=== PATIENT | male | born 1955 | race Caucasian/White ===

== ENCOUNTER 2016-07-20 13:40 | Outpatient (CLI) | payer MEDICARE, MEDICAID ==
[2016-07-20 14:17] LABS: HEMOGLOBIN A1C 0.76 g/dL
[2016-07-20 14:44] LABS: CALCIUM 9.6 mg/dL (8.5-10.3); CREATININE 0.6 mg/dL (0.6-1.2); POTASSIUM 4.1 mmol/L (3.5-5.0)
== END 2016-07-20 13:41 | disposition home or self-care (01) ==
LOC: LAB 13:40
PROVIDERS: ATTEND Internal Medicine
DX: E11.9 Type 2 diabetes mellitus without complications (principal); E29.1 Testicular hypofunction; Z79.899 Other long term (current) drug therapy
CPT/HCPCS: 36415; 80048; 83036; 84403

== ENCOUNTER 2017-01-07 14:03 | Emergency (ER) | payer MEDICARE, MEDICAID ==
--- NOTE | 2017-01-07 15:31 | ED Physician Documentation ---
History of Present Illness - Stated complaint Stated Complaint: MED REFILL - Chief complaint Chief Complaint: General - Additonal information Additional information: hx from pt he takes morphine ER 30 q 6h for chronic back pain his doctor Dr Michael is out of the office for the holidays and he did not get his refill only two pills left no other acute issue - no fever, CP AP numbness weakness injury etc Review of Systems Constitutional: denies: Fever Cardiac: denies: Chest pain / pressure GI: denies: Abdominal Pain : denies: Dysuria Musculoskeletal: reports: Back pain PD PAST MEDICAL HISTORY - Past Medical History Past Medical History: Yes Cardiovascular: None Respiratory: None Neuro: None Endocrine/Autoimmune: Type 2 diabetes GI: None : None HEENT: None Psych: Depression, Anxiety Musculoskeletal: Chronic back pain Derm: Other - Past Surgical History Past Surgical History: Yes - Present Medications Home Medications: Ambulatory Orders Medication Instructions Recorded Confirmed Gabapentin [Neurontin] 300 mg PO TID 04/17/13 01/07/17 Metformin HCl 1,000 mg PO BID 04/17/13 01/07/17 Morphine ER [Ms Contin] 30 mg PO Q6H 04/17/13 01/07/17 PARoxetine [Paxil] 2 cap PO DAILY 04/17/13 01/07/17 Testosterone Cypionate 100 mg IM ONCE 04/17/13 04/17/13 Amitriptyline [Elavil] 10 mg PO QPM 01/07/17 01/07/17 LORazepam [Ativan] 0.5 mg PO HS 01/07/17 01/07/17 Lisinopril 5 mg PO DAILY 01/07/17 01/07/17 Morphine ER 30 mg PO Q6H PRN #12 tablet 01/07/17 - Allergies Allergies/Adverse Reactions: Allergies Allergy/AdvReac Type Severity Reaction Status Date / Time No Known Drug Allergies Allergy Verified 01/07/17 14:26 - Social History Does the pt smoke?: Yes Smoking Status: Current every day smoker Does the pt drink ETOH?: Yes Does the pt have substance abuse?: No - Immunizations Immunizations are current?: Yes - POLST Patient has POLST: No PD ED PE NORMAL - Vitals Vital signs reviewed: Yes - HEENT HEENT: Atraumatic - Neck Neck: Supple, no meningeal sign - Cardiac Cardiac: RRR - Respiratory Respiratory: No respiratory distress, Clear bilaterally - Abdomen Abdomen: Soft, Non tender - Derm Derm: Normal color - Neuro Neuro: No motor deficit, Other (walked s diff) Results - Vitals Vitals: Vital Signs - 24 hr 01/07/17 14:23 Temperature 36.4 C L Heart Rate 102 H Respiratory 16 Rate Blood Pressure 159/94 H O2 Saturation 95 Oxygen O2 Source Room air PD MEDICAL DECISION MAKING - ED course ED course: I also tried to call PMD or covering MD and not available, out of office, no covering So rx 3 days MS ER 30 q6 Departure - Departure Disposition: Home, Self Care Clinical Impression: Medicine refill Condition: Good Follow-Up: Alida Castellon MD [Primary Care Provider] - Prescriptions: oxyCODONE [Roxicodone] 10 mg PO Q6H PRN #24 tablet PRN Reason: Pain Comments: I also tried to reach your PMD and was unable. The ER is not supposed to refill long acting narcotics like morphine ER but to prevent severe pain and withdrawal I have prescribed three days worth.
[2017-01-07 15:43] VITALS: BP 131/87
== END 2017-01-07 15:44 | disposition home or self-care (01) ==
LOC: ED 14:03
DX: G89.29 Other chronic pain (principal); E11.8 Type 2 diabetes mellitus with unspecified complications; F17.200 Nicotine dependence, unspecified, uncomplicated; Z79.84 Long term (current) use of oral hypoglycemic drugs
CPT/HCPCS: 99283

== ENCOUNTER 2017-06-27 12:24 | Outpatient (CLI) | payer MEDICARE, MEDICAID ==
[2017-06-27 13:24] LABS: CALCIUM 9.1 mg/dL (8.5-10.3); CREATININE 0.6 mg/dL (0.6-1.2)
[2017-06-27 13:39] LABS: HB2 TOTAL 19.4 g/dL; HEMOGLOBIN A1C 0.71 g/dL; HEMOGLOBIN A1C % 5.5 % (4.6-6.2)
== END 2017-06-27 12:25 | disposition home or self-care (01) ==
LOC: LAB 12:24
PROVIDERS: ATTEND Internal Medicine
DX: E11.9 Type 2 diabetes mellitus without complications (principal); Z79.899 Other long term (current) drug therapy
CPT/HCPCS: 36415; 80048; 82607; 83036

== ENCOUNTER 2017-10-19 13:56 | Emergency (ER) | payer MEDICARE, MEDICAID ==
--- NOTE | 2017-10-19 14:16 | ED Physician Documentation ---
PD HPI HEENT - Stated complaint Stated Complaint: OBJECT STUCK IN THROAT - Chief complaint Chief Complaint: General - History obtained from History obtained from: Patient - History of Present Illness Timing - onset: How many hours ago (4) Timing - duration: Hours Timing - details: Abrupt onset, Still present Location: Throat Worsens: [place] (attempted PO intake) Similar symptoms before: No diagnosis (He has food or pills get stuck briefly often. Usually passes in seconds to minute or so.) Review of Systems Nose: denies: Rhinorrhea / runny nose, Congestion Throat: denies: Sore throat Respiratory: denies: Dyspnea, Cough PD PAST MEDICAL HISTORY - Past Medical History Cardiovascular: None Respiratory: None Endocrine/Autoimmune: Type 2 diabetes GI: None : None HEENT: None Psych: Depression, Anxiety Musculoskeletal: Chronic back pain Derm: Other - Past Surgical History Past Surgical History: Yes - Present Medications Home Medications: Ambulatory Orders Medication Instructions Recorded Confirmed Gabapentin [Neurontin] 300 mg PO TID 04/17/13 01/07/17 Metformin HCl 1,000 mg PO BID 04/17/13 01/07/17 Morphine ER [Ms Contin] 30 mg PO Q6H 04/17/13 01/07/17 PARoxetine [Paxil] 2 cap PO DAILY 04/17/13 01/07/17 Testosterone Cypionate 100 mg IM ONCE 04/17/13 04/17/13 Amitriptyline [Elavil] 10 mg PO QPM 01/07/17 01/07/17 LORazepam [Ativan] 0.5 mg PO HS 01/07/17 01/07/17 Lisinopril 5 mg PO DAILY 01/07/17 01/07/17 Morphine ER 30 mg PO Q6H PRN #24 tablet 01/07/17 - Allergies Allergies/Adverse Reactions: Allergies Allergy/AdvReac Type Severity Reaction Status Date / Time No Known Drug Allergies Allergy Verified 10/19/17 14:01 - Social History Does the pt smoke?: Yes Smoking Status: Current every day smoker Does the pt drink ETOH?: Yes Does the pt have substance abuse?: No - Immunizations Immunizations are current?: Yes - POLST Patient has POLST: No PD ED PE NORMAL - Vitals Vital signs reviewed: Yes - General General: Alert and oriented X 3, No acute distress, Well developed/nourished - HEENT HEENT: Pharynx benign - Neck Neck: Supple, no meningeal sign, No adenopathy - Cardiac Cardiac: RRR, No murmur - Respiratory Respiratory: Clear bilaterally - Derm Derm: Normal color, Warm and dry - Extremities Extremities: No tenderness to palpate, Normal ROM s pain, No edema, No calf tenderness / cord - Neuro Neuro: Alert and oriented X 3, No motor deficit, Normal speech - Psych Psych: Normal mood, Normal affect Results - Vitals Vitals: Vital Signs - 24 hr 10/19/17 10/19/17 13:58 16:03 Temperature 36.5 C Heart Rate 101 H 68 Respiratory 18 18 Rate Blood Pressure 137/77 H 111/78 O2 Saturation 97 97 Oxygen O2 Source Room air - Labs Labs: Laboratory Tests 10/19/17 10/19/17 10/19/17 15:05 15:05 15:32 WBC 13.0 H RBC 5.79 Hgb 18.3 H Hct 54.0 H MCV 93.2 MCH 31.6 H MCHC 33.9 RDW 14.2 Plt Count 321 MPV 6.8 L Neut # (Auto) 8.9 H Lymph # (Auto) 2.7 [place] # (Auto) 0.9 Eos # (Auto) 0.3 Baso # (Auto) 0.1 Absolute Nucleated RBC 0.01 Nucleated RBC % 0.1 Sodium 132 L Potassium 3.9 Chloride 98 L Carbon Dioxide 25 Anion Gap 9.0 BUN 6 Creatinine 0.7 Estimated GFR (MDRD) 114 Glucose 116 H POC Whole Bld Glucose 100 Calcium 9.4 Magnesium 2.1 Total Bilirubin 0.8 AST 15 ALT 19 Alkaline Phosphatase 63 Total Protein 7.4 Albumin 4.3 Globulin 3.1 Albumin/Globulin Ratio 1.4 Lipase 39 PD MEDICAL DECISION MAKING - ED course Complexity details: re-evaluated patient (He feels better after receiving medications to dilate the esophagus and then some easy gas granules. He is now able to swallow and drinks a couple glasses of water. However we talked about his frequent symptoms and it would be reasonable for him to get a scope. I would refer him to GI rather than general surgery as it may be likely he needs some dilatation or other evaluation of the esophagus more than just diagnostic scoping.), considered differential, d/w patient - Sepsis Event Vital Signs: Vital Signs - 24 hr 10/19/17 10/19/17 13:58 16:03 Temperature 36.5 C Heart Rate 101 H 68 Respiratory 18 18 Rate Blood Pressure 137/77 H 111/78 O2 Saturation 97 97 Oxygen O2 Source Room air Departure - Departure Disposition: 01 Home, Self Care Clinical Impression: Esophageal foreign body Qualifiers: Encounter type: initial encounter Qualified Code(s): T18.108A - Unspecified foreign body in esophagus causing other injury, initial encounter Condition: Stable Record reviewed to determine appropriate education?: Yes Instructions: ED Foreign Body Esophageal Rslv Follow-Up: Alida Castellon MD [Primary Care Provider] - Javan Weathers MD [Provider Admit Priv/Credential] - Comments: Soft food and try crushing your largest pills before swallowing them. He can also drink some water and have some applesauce or yogurt prior to taking her pills to try to relax the esophagus a little bit initially. It would make sense to have scope to see if there is something like a stricture or so that can be fixed. Follow-up with gastroenterology. Members from the group in [place] do come up and do evaluations and scopes here at [facility]. They also able to do interventions such as dilations or such if that is the appropriate treatment. Call their office to set up an appointment. You can see if they do need a referral from your primary care rather than the ER. Discharge Date/Time: 10/19/17 16:02
[2017-10-19] MEDS ORDERED: METOCLOPRAMIDE 10 MG/2 ML VIAL IVP STA (14:53)
[2017-10-19] MEDS ORDERED: SODIUM CHLORIDE 0.9% 1,000 ML IV ONE (14:53)
[2017-10-19] MEDS ORDERED: NITROGLYCERIN SL 0.4 MG TABLET SL STA (14:54)
[2017-10-19 15:15] LABS: BASOPHILS # (AUTO) 0.1 10^3/uL (0.0-0.1); BASOPHILS % (AUTO) 0.6 %; EOSINOPHILS # (AUTO) 0.3 10^3/uL (0.0-0.7); EOSINOPHILS % (AUTO) 2.6 %; HGB - HEMOGLOBIN 18.3 g/dL (14.0-18.0); LYMPHOCYTES # (AUTO) 2.7 10^3/uL (1.5-3.5); LYMPHOCYTES % (AUTO) 20.8 %; MEAN CORPUSCULAR HEMOGLOBIN 31.6 pg (27.0-31.0); MEAN CORPUSCULAR HGB CONC 33.9 g/dL (32.0-36.0); MEAN CORPUSCULAR VOLUME 93.2 fL (80.0-94.0); MEAN PLATELET VOLUME 6.8 fL (7.4-11.4); MONOCYTES # (AUTO) 0.9 10^3/uL (0.0-1.0); MONOCYTES % (AUTO) 7.3 %; NEUTROPHILS # (AUTO) 8.9 10^3/uL (1.5-6.6); NEUTROPHILS % (AUTO) 68.7 %; PLT - PLATELET COUNT 321 10^3/uL (130-450); RED BLOOD COUNT 5.79 10^6/uL (4.70-6.10); RED CELL DISTRIBUTION WIDTH 14.2 % (12.0-15.0)
[2017-10-19 15:28] LABS: ALBUMIN 4.3 g/dL (3.2-5.5); ALBUMIN/GLOBULIN RATIO 1.4 (1.0-2.2); BILIRUBIN,TOTAL 0.8 mg/dL (0.2-1.0); CALCIUM 9.4 mg/dL (8.5-10.3); CREATININE 0.7 mg/dL (0.6-1.2); MAGNESIUM 2.1 mg/dL (1.7-2.8); TOTAL PROTEIN 7.4 g/dL (6.7-8.2)
[2017-10-19 16:04] VITALS: BP 111/78
== END 2017-10-19 16:02 | disposition home or self-care (01) ==
LOC: ED 13:56
DX: T18.108A Unspecified foreign body in esophagus causing other injury, initial encounter (principal); E11.9 Type 2 diabetes mellitus without complications; Z79.84 Long term (current) use of oral hypoglycemic drugs; F17.200 Nicotine dependence, unspecified, uncomplicated; X58.XXXA Exposure to other specified factors, initial encounter
CPT/HCPCS: 36415; 80053; 83690; 83735; 85025; 96374; 99283; A9270; J2765

== ENCOUNTER 2017-11-26 20:40 | Emergency (ER) | payer MEDICARE, MEDICAID ==
--- NOTE | 2017-11-26 20:47 | ED Physician Documentation ---
PD HPI HEENT - Stated complaint Stated Complaint: MOUTH PAIN - Chief complaint Chief Complaint: Heent - History obtained from History obtained from: Patient - History of Present Illness Timing - onset: How many days ago (3) Timing - duration: Days (3) Timing - details: Abrupt onset (he had multiple teeth removed 3 days ago by dentist. he is on chronic pain meds for his back and so patient says the dentist did not give any other pain meds. Patient says mouth hurting and the usual Morphine ER si not helping it.) Location: Tooth (multiple teeth extracted (14)) Associated symptoms: No: Fever, Congestion, Swollen nodes, Facial swelling Similar symptoms before: Has not had sx before Recently seen: Clinic (seen dentist 3 days ago with 14 teeth extracted.) Review of Systems Constitutional: denies: Fever, Chills Nose: denies: Rhinorrhea / runny nose, Congestion Throat: denies: Sore throat Respiratory: denies: Cough PD PAST MEDICAL HISTORY - Past Medical History Cardiovascular: None Respiratory: None Endocrine/Autoimmune: Type 2 diabetes GI: None : None HEENT: None Psych: Depression, Anxiety Musculoskeletal: Chronic back pain Derm: Other - Past Surgical History Past Surgical History: Yes - Present Medications Home Medications: Ambulatory Orders Medication Instructions Recorded Confirmed Gabapentin [Neurontin] 300 mg PO TID 04/17/13 01/07/17 Metformin HCl 1,000 mg PO BID 04/17/13 01/07/17 Morphine ER [Ms Contin] 30 mg PO Q6H 04/17/13 01/07/17 PARoxetine [Paxil] 2 cap PO DAILY 04/17/13 01/07/17 Testosterone Cypionate 100 mg IM ONCE 04/17/13 04/17/13 Amitriptyline [Elavil] 10 mg PO QPM 01/07/17 01/07/17 LORazepam [Ativan] 0.5 mg PO HS 01/07/17 01/07/17 Lisinopril 5 mg PO DAILY 01/07/17 01/07/17 Morphine ER 30 mg PO Q6H PRN #24 tablet 01/07/17 Morphine Ir [Ms Ir] 7.5 - 15 mg PO TID PRN #15 tablet 11/26/17 Naproxen 375 mg PO BID #20 tablet 11/26/17 - Allergies Allergies/Adverse Reactions: Allergies Allergy/AdvReac Type Severity Reaction Status Date / Time No Known Drug Allergies Allergy Verified 11/26/17 20:45 - Social History Does the pt smoke?: Yes Smoking Status: Current every day smoker Does the pt drink ETOH?: Yes Does the pt have substance abuse?: No - Immunizations Immunizations are current?: Yes - POLST Patient has POLST: No PD ED PE NORMAL - Vitals Vital signs reviewed: Yes - General General: Alert and oriented X 3, No acute distress, Well developed/nourished - HEENT HEENT: Pharynx benign, Other (gums left upper and lower with healing post extraction changes. Couple of canines are still in place. No signs of infection. ) - Neck Neck: Supple, no meningeal sign, No adenopathy - Cardiac Cardiac: RRR, No murmur - Respiratory Respiratory: Clear bilaterally - Derm Derm: Normal color, Warm and dry Results - Vitals Vitals: Vital Signs - 24 hr 11/26/17 20:41 Temperature 36.2 C L Heart Rate 92 Respiratory 18 Rate Blood Pressure 135/73 H O2 Saturation 97 Oxygen O2 Source Room air PD MEDICAL DECISION MAKING - ED course Complexity details: considered differential (He is on chronic pain medicines for his back. It makes sense however that having 14 teeth removed will give him pain above his baseline. I think it reasonable to have short term short acting pain medicine to supplement his long-acting medicine. No signs of infection at this time. He can add anti-inflammatories as well.), d/w patient Departure - Departure Disposition: 01 Home, Self Care Clinical Impression: Status post tooth extraction, Acute pain of mouth Condition: Stable Record reviewed to determine appropriate education?: Yes Instructions: ED Tooth Pain Follow-Up: Alida Castellon MD [Primary Care Provider] - Prescriptions: Morphine Ir [Ms Ir] 7.5 - 15 mg PO TID PRN #15 tablet PRN Reason: Pain Naproxen 375 mg PO BID #20 tablet Comments: It makes sense with that many teeth extracted that you will be having pain above your baseline. Continue your long-acting pain medications. To that add immediate release morphine half to 1 tablet 3 times a day. I would expect you to need this just short-term for the next 5 or 6 days though the post extraction and mouth pain should improve over that time. You could use some anti- inflammatories as well such as naproxen twice daily.
[2017-11-26] MEDS ORDERED: MORPHINE IR 15 MG TABLET PO STA (21:04)
[2017-11-26] MEDS ORDERED: oxyCODONE/ACET 5/325 Prepack 4 PO STA (21:06)
[2017-11-26 21:41] VITALS: BP 109/73
== END 2017-11-26 21:41 | disposition home or self-care (01) ==
LOC: ED 20:40
DX: K13.79 Other lesions of oral mucosa (principal); G89.29 Other chronic pain; Z98.890 Other specified postprocedural states; E11.9 Type 2 diabetes mellitus without complications; Z79.84 Long term (current) use of oral hypoglycemic drugs; F17.200 Nicotine dependence, unspecified, uncomplicated
CPT/HCPCS: 99283; A9270

== ENCOUNTER 2017-12-16 16:43 | Emergency (ER) | payer MEDICARE, MEDICAID ==
[2017-12-16 17:03] VITALS: BP 110/75
--- NOTE | 2017-12-16 17:19 | ED Physician Documentation ---
PD HPI HEENT - Stated complaint Stated Complaint: TOOTH PX POST DENTAL WORK - Chief complaint Chief Complaint: Heent - History obtained from History obtained from: Patient - History of Present Illness Timing - onset: Today Timing - details: Abrupt onset (had multiple more teeth extracted today and having pain from it. Dentist Rx Percocet but patient on chronic pain meds so not really effective. Had had similar increased pain for few days with prior extractions and had been helped with slightly higher short acting pain meds (Morphine IR for few days).) Location: Tooth (extraction sites), Mouth Review of Systems Constitutional: denies: Fever, Chills Cardiac: denies: Chest pain / pressure GI: denies: Nausea, Vomiting PD PAST MEDICAL HISTORY - Past Medical History Cardiovascular: None Respiratory: None Endocrine/Autoimmune: Type 2 diabetes GI: None : None HEENT: None Psych: Depression, Anxiety Musculoskeletal: Chronic back pain Derm: Other - Past Surgical History Past Surgical History: Yes - Present Medications Home Medications: Ambulatory Orders Medication Instructions Recorded Confirmed Gabapentin [Neurontin] 300 mg PO TID 04/17/13 01/07/17 Metformin HCl 1,000 mg PO BID 04/17/13 01/07/17 Morphine ER [Ms Contin] 30 mg PO Q6H 04/17/13 01/07/17 PARoxetine [Paxil] 2 cap PO DAILY 04/17/13 01/07/17 Testosterone Cypionate 100 mg IM ONCE 04/17/13 04/17/13 Amitriptyline [Elavil] 10 mg PO QPM 01/07/17 01/07/17 LORazepam [Ativan] 0.5 mg PO HS 01/07/17 01/07/17 Lisinopril 5 mg PO DAILY 01/07/17 01/07/17 Morphine ER 30 mg PO Q6H PRN #24 tablet 01/07/17 Naproxen 375 mg PO BID #20 tablet 11/26/17 Chlorhexidine Gluconate [Peridex] 5 ml MM BID #118 ml 12/16/17 Morphine Ir [Ms Ir] 15 mg PO TID PRN #25 tablet 12/16/17 - Allergies Allergies/Adverse Reactions: Allergies Allergy/AdvReac Type Severity Reaction Status Date / Time No Known Drug Allergies Allergy Verified 12/16/17 17:03 - Social History Does the pt smoke?: Yes Smoking Status: Current every day smoker Does the pt drink ETOH?: Yes Does the pt have substance abuse?: No - Immunizations Immunizations are current?: Yes - POLST Patient has POLST: No PD ED PE NORMAL - Vitals Vital signs reviewed: Yes - General General: Alert and oriented X 3, No acute distress, Well developed/nourished - HEENT HEENT: Other (mouth with gum sutures and post extraction changes for many teeth along bottom. No bleeding at this time. ) Results - Vitals Vitals: Oxygen O2 Source Room air PD MEDICAL DECISION MAKING - ED course Complexity details: considered differential (seems like nice hay, and he is making progress on getting teeth out for dentures. Seems reasonable to be hurting. ), d/w patient Departure - Departure Disposition: 01 Home, Self Care Clinical Impression: Status post tooth extraction, Acute pain of mouth Condition: Stable Record reviewed to determine appropriate education?: Yes Follow-Up: Alida Castellon MD [Primary Care Provider] - Prescriptions: Chlorhexidine Gluconate [Peridex] 5 ml MM BID #118 ml Morphine Ir [Ms Ir] 15 mg PO TID PRN #25 tablet PRN Reason: Pain Comments: He can do some rinsing of the mouth with antiseptic or just salt water couple times a day to help with the gums healing. Use the morphine pain medication as needed for pain short-term. Discharge Date/Time: 12/16/17 17:42
[2017-12-16] MEDS ORDERED: MORPHINE IR 15 MG TABLET PO STA (17:33)
== END 2017-12-16 17:42 | disposition home or self-care (01) ==
LOC: ED 16:43
DX: K08.89 Other specified disorders of teeth and supporting structures (principal); E11.9 Type 2 diabetes mellitus without complications; F17.200 Nicotine dependence, unspecified, uncomplicated; Z79.84 Long term (current) use of oral hypoglycemic drugs; Z98.818 Other dental procedure status
CPT/HCPCS: 99283; A9270

== ENCOUNTER 2018-01-03 11:24 | Outpatient (CLI) | payer MEDICARE, MEDICAID ==
[2018-01-03 12:01] LABS: BILIRUBIN,URINE NEGATIVE (NEGATIVE); GLUCOSE, URINE (UA) NEGATIVE (NEGATIVE); KETONES,URINE (UA) NEGATIVE (NEGATIVE); LEUKOCYTE ESTERASE, URINE NEGATIVE (NEGATIVE); NITRITE,URINE NEGATIVE (NEGATIVE); OCCULT BLOOD,URINE NEGATIVE (NEGATIVE); PROTEIN,URINE NEGATIVE (NEGATIVE); UROBILINOGEN,URINE 0.2 (NORMAL) E.U./dL (NORMAL)
[2018-01-03 12:02] LABS: BASOPHILS # (AUTO) 0.1 10^3/uL (0.0-0.1); BASOPHILS % (AUTO) 0.5 %; EOSINOPHILS # (AUTO) 0.3 10^3/uL (0.0-0.7); EOSINOPHILS % (AUTO) 2.7 %; HGB - HEMOGLOBIN 15.9 g/dL (14.0-18.0); LYMPHOCYTES # (AUTO) 2.1 10^3/uL (1.5-3.5); LYMPHOCYTES % (AUTO) 18.9 %; MEAN CORPUSCULAR HGB CONC 34.2 g/dL (32.0-36.0); MEAN CORPUSCULAR VOLUME 90.6 fL (80.0-94.0); MEAN PLATELET VOLUME 6.9 fL (7.4-11.4); MONOCYTES # (AUTO) 0.7 10^3/uL (0.0-1.0); MONOCYTES % (AUTO) 6.5 %; NEUTROPHILS # (AUTO) 7.9 10^3/uL (1.5-6.6); NEUTROPHILS % (AUTO) 71.4 %; PLT - PLATELET COUNT 345 10^3/uL (130-450); RED BLOOD COUNT 5.14 10^6/uL (4.70-6.10); RED CELL DISTRIBUTION WIDTH 14.2 % (12.0-15.0)
[2018-01-03 12:05] LABS: CLARITY,URINE CLEAR (CLEAR)
[2018-01-03 12:18] LABS: HB2 TOTAL 17.7 g/dL; HEMOGLOBIN A1C 0.72 g/dL; HEMOGLOBIN A1C % 5.9 % (4.6-6.2)
[2018-01-03 12:24] LABS: ALBUMIN 3.9 g/dL (3.2-5.5); ALBUMIN/GLOBULIN RATIO 1.3 (1.0-2.2); ALKALINE PHOSPHATASE 75 IU/L (42-121); ALT ALANINE AMINOTRANSFERASE 15 IU/L (10-60); AST ASPARTATE AMINOTRANSFERASE 16 IU/L (10-42); BILIRUBIN,TOTAL 0.9 mg/dL (0.2-1.0); BUN - BLOOD UREA NITROGEN 5 mg/dL (6-20); CARBON DIOXIDE - CO2 28 mmol/L (21-32); CHLORIDE 96 mmol/L (101-111); CHOL/HDL RATIO 3.2 (<5.0); CHOLESTEROL 158 mg/dL; CREATININE 0.5 mg/dL (0.6-1.2); GFR - MDRD 168 (>89); GLUCOSE 107 mg/dL (70-100); HDL CHOLESTEROL 50 mg/dL; LDL CHOLESTEROL,CALCULATED 85 mg/dL; LDL/HDL RATIO 1.7 (<3.6); SODIUM 131 mmol/L (135-145); TOTAL PROTEIN 6.9 g/dL (6.7-8.2); VLDL CHOLESTEROL 23 mg/dL
[2018-01-03 12:34] LABS: THYROID STIMULATING HORMONE 1.12 uIU/mL (0.34-5.60)
[2018-01-03 12:47] LABS: CREATININE,URINE 33.2 mg/dL
[2018-01-03 13:24] LABS: PSA SCREEN (Z12.5) 1.84 ng/mL (0.000-2.000)
[2018-01-03 14:20] LABS: MICROALBUMIN,URINE < 0.3 mg/dL (0-300.0)
== END 2018-01-03 11:25 | disposition home or self-care (01) ==
LOC: LAB 11:24
PROVIDERS: ATTEND Internal Medicine
DX: Z13.6 Encounter for screening for cardiovascular disorders (principal); Z79.899 Other long term (current) drug therapy; Z12.5 Encounter for screening for malignant neoplasm of prostate; F32.9 Major depressive disorder, single episode, unspecified; E29.1 Testicular hypofunction; E11.9 Type 2 diabetes mellitus without complications; K08.89 Other specified disorders of teeth and supporting structures; R13.10 Dysphagia, unspecified; M45.5 Ankylosing spondylitis of thoracolumbar region; G47.00 Insomnia, unspecified
CPT/HCPCS: 36415; 80053; 80061; 81003; 82043; 82570; 82607; 83036; 84403; 84443; 85025; G0103; 81001; 83721; 84153; 87086

== ENCOUNTER 2018-01-14 08:58 | Outpatient (CLI) | payer MEDICARE, MEDICAID ==
[2018-01-14] MEDS ORDERED: IOPAMIDOL-300 100 ML VIAL ONE ×2 (09:05)
[2018-01-14] MEDS ORDERED: IOPAMIDOL-300 100 ML VIAL IVP ONE (10:04)
--- NOTE | 2018-01-16 10:44 | CT Report ---
Reason: ESOHAGEAL CANCER Procedure Date: 01/14/2018 Accession Number: [id number] / [id number] Procedure: CT - Abdomen W/ CPT Code: FULL RESULT: EXAM: CT CHEST, ABDOMEN AND PELVIS EXAM DATE: 01/14/2018 10:02 AM. CLINICAL HISTORY: Esophageal cancer. COMPARISONS: CHEST W/ 01/14/2018 9:47 AM. TECHNIQUE: Routine helical CT imaging was performed through the chest, abdomen, and pelvis. IV contrast: ISOVUE 300 100mL. Enteric contrast: No. Reconstructions: Coronal and sagittal. In accordance with CT protocol optimization, one or more of the following dose reduction techniques were utilized for this exam: automated exposure control, adjustment of mA and/or KV based on patient size, or use of iterative reconstructive technique. FINDINGS: Lungs/Pleura: There are innumerable bilateral pulmonary nodules and masses suspicious for metastases with the largest in the right measuring 3.5 cm and the largest in the left lung measuring 2.5 cm. There is no pleural effusion or pneumothorax. Mediastinum: There is mild aortic arch calcification. There are numerous prominent lymph nodes which morphologically appear suspicious due to morphology and number but do not meet size criteria. The subcarinal lymph node, typically the largest node, measures 2.3 x 1.5 cm. There is marked soft tissue thickening of the lower esophagus in keeping with provided history of esophageal cancer. Tiny but prominent paraesophageal lymph nodes also seen in the region of the GE junction. No hilar, internal mammary or axillary lymphadenopathy. Liver: Normal. Gallbladder/Bile Ducts: Cholelithiasis. Spleen: Normal. Pancreas: Normal. Adrenal Glands: Normal. 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 Another 1.5 cm lesion in the right kidney is incompletely characterized. Bilateral renal hypodensities are too small to characterize. The left kidney is otherwise unremarkable. Peritoneal Cavity/Bowel: While CT evaluation of the stomach is limited and prone to false positive results, thickening of the proximal stomach is suspicious for disease in this setting. There is haziness in the region of the celiac access and gastrohepatic ligament with numerous tiny subcentimeter lymph nodes which do not meet size criteria but are nevertheless suspicious. For example, 1 cm lymph node image 16 series 3, 1 cm lymph node image 19 series 3. Diverticulosis without diverticulitis. No free fluid, free air or adenopathy. No acute inflammatory process. The appendix is well visualized and normal. Pelvic Organs: Normal. The bladder and visualized pelvic organs are within normal limits. Vasculature: No aneurysms or other significant abnormality. Bones: No aggressive osseous lesions. Other: None. IMPRESSION: Suspicion for local regional extent of disease involving the proximal stomach and mediastinal, gastroesophageal, gastrohepatic ligament lymph nodes. Recommend correlation to endoscopic findings. Innumerable bilateral pulmonary metastases. 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 Incompletely characterized 1.5 cm right renal lesion. RADIA
== END 2018-01-14 08:59 | disposition home or self-care (01) ==
LOC: DI 08:58
PROVIDERS: ATTEND Internal Medicine Gastroenterology
DX: C15.9 Malignant neoplasm of esophagus, unspecified (principal); C78.02 Secondary malignant neoplasm of left lung; C78.01 Secondary malignant neoplasm of right lung
CPT/HCPCS: 71260; 74160; Q9967

== ENCOUNTER 2018-01-31 07:27 | Day surgery (SDC) | payer MEDICARE, MEDICAID ==
[2018-01-31] MEDS ORDERED: LACTATED RINGERS 1,000 ML IV ONE (07:35)
[2018-01-31] MEDS ORDERED: ceFAZolin 2 GM/50 ML 2 GM/50 ML BAG IV ONE (07:36)
--- NOTE | 2018-01-31 08:00 | ANESTHESIA ---
Pre-Anesthesia VS, & Labs - Diagnosis Esophageal cancer - Procedure Portacath Vital Signs: Temp Pulse Resp BP Pulse Ox 37.1 C 99 16 135/78 H 96 01/31/18 07:52 01/31/18 07:52 01/31/18 07:52 01/31/18 07:52 01/31/18 07:52 Height 6 ft Weight (kg) 115.7 kg Body Mass Index 33.9 - NPO >8 hours - Lab Results Lab results reviewed: No Home Medications and Allergies Gabapentin [Neurontin] 300 mg PO TID 04/17/13 Metformin HCl 1,000 mg PO BID 04/17/13 Morphine ER [Ms Contin] 30 mg PO Q6H 04/17/13 PARoxetine [Paxil] 2 cap PO DAILY 04/17/13 Testosterone Cypionate 100 mg IM ONCE 04/17/13 Amitriptyline [Elavil] 10 mg PO QPM 01/07/17 LORazepam [Ativan] 0.5 mg PO HS 01/07/17 Lisinopril 5 mg PO DAILY 01/07/17 Allergies/Adverse Reactions: Allergies Allergy/AdvReac Type Severity Reaction Status Date / Time No Known Drug Allergies Allergy Verified 12/16/17 17:03 Anes History & Medical History - Anesthetic History Anesthesia Complications: reports: No previous complications Family history of Anesthesia Complications: Denies Family history of Malignant Hyperthermia: Denies - Medical History Cardiovascular: reports: None Pulmonary: reports: None Gastrointestinal: reports: None Urinary: reports: None Neuro: reports: Migraines, Peripheral neuropathy Musculoskeletal: reports: Chronic back pain Endocrine/Autoimmune: reports: Type 2 diabetes Blood Disorders: reports: None Skin: reports: Other Smoking Status: Former smoker Psychosocial: reports: Depression - Surgical History General: Other (Umbilical hernia) Exam General: Alert, Oriented x3 Dental: Poor dentition Mouth Opening: Greater than 4 Fingerbreadths Neck Mobility: Normal Mallampati classification: II Thyromental Distance: greater than 6 cm Respiratory: Lungs clear Cardiovascular: Regular rate Neurological: Normal speech Mental/Cognitive Status: Alert/Oriented X3 Cognitive Status: Within normal limits Plan Anesthesia Type: MAC Consent for Procedure(s) Verified and Reviewed: Yes Code Status: Attempt Resuscitation ASA classification: 3-Severe systemic disease Is this case an emergency?: No
[2018-01-31] MEDS ORDERED: BUPIVACAINE 0.5% PF 30 ML VIAL SUBQ ONE ×2 (10:45)
[2018-01-31] MEDS ORDERED: HYDROcod/ACETAM 5/325 MG TABLET PO PRN (11:13)
[2018-01-31] MEDS ORDERED: ONDANSETRON 4 MG/2 ML VIAL IVP PRN (11:13)
[2018-01-31] MEDS ORDERED: HYDROmorphone 0.5 MG/0.5 ML SYRINGE IVP PRN (11:13)
--- NOTE | 2018-01-31 11:17 | OPERATIVE REPORT ---
Operative Report - General Procedure Date: 01/31/18 Planned Procedure: Port-A-Cath placement Pre-Op Diagnosis: Stage IV esophageal carcinoma Procedure Performed: Port-A-Cath placement in the left subclavian position Post Op Diagnosis: Same - Procedure Note Primary Surgeon: Juan José Driver MD Anesthesia Provider: Flora South CRNA Anesthesia Technique: Local (15 mL of half percent Marcaine), MAC IV Fluids (mL): 500 Estimated Blood Loss (mL): 5 Complications: None. - Other Other Information/Narrative: OPERATIVE DESCRIPTION/REPORT: After verbal and written informed consent was obtained detailing the risks of infection, bleeding requiring transfusion with its risks, nerve injury, and , and after I met with the patient confirming the surgery and the site of the surgery, the patient was brought to the operative suite and placed supine on the operating table. Great care was taken to avoid pressure points to prevent pressure necrosis or nerve injury. Monitoring devices were applied along with TEDs and pneumatic compressive stockings (to prevent DVT). The patient received preoperative antibiotics for surgical prophylaxis. Flora South CRNA sedated and anesthetized the patient for the entire procedure. The patient was prepped and draped in the usual sterile manner. A "time in" then confirmed that the patient was identified with 3 identifiers (name, date and medical record number), the history and physical was in the chart, the signed consent confirming the procedure was in the chart, the patient was in the correct position, the aforementioned prophylactic measures were in place or given, we had the correct personnel and equipment to complete the procedure and that anesthesia, surgery and nursing were given an opportunity to express any concerns. With the agreement of everyone in the room, we proceeded with the operation. After the subclavian region was anesthetized using % marcaine and the patient placed in Trendelenberg position, an [employer] Smartport kit (Catalog #[id number], Lot #[id number]) was opened. The finder needle was inserted into the subclavian vein taking great care to place it just under the clavicle in order to minimize the risk of pneumothorax. When good venous blood return was obtained, the wire was placed through the needle and into the vein without difficulty. Cardiac irritability confirmed that the catheter was correctly going down towards the heart. Below and lateral to the needle insertion site, the area was anesthetized again using % marcaine and a transverse incision was made just large enough to accommodate the port. This incision was taken down to the fascia using sharp dissection and the area for the port was created using blunt downward dissection. Meticulous hemostasis was obtained using Bovie electrocautery. A knife was inserted along the wire to widen the insertion site and this was further dilated using a Yaneth. The port was flushed with heparinized saline and placed in the pouch and the catheter was then passed to the needle opening using the passer. The catheter was then measured against the patients anterior chest and cut so that the tip would lie 2 cm below the manubrial-sternal junction. The port was secured to the fascia using a 3-0 Prolene on the side of the opening of the port. The catheter was then wiped and wrapped with a heparinized soaked 4x4. The dilator and sheath were then caref ully inserted over the wire and the dilator and wire withdrawn. The catheter was then inserted into the sheath and the sheath was broken away from the catheter leaving the catheter in place in the vein. An X-ray confirmed placement of the catheter tip in the right atrium/supracardiac vena cava without pneumothorax. Using a Hueber needle the port was accessed and good blood return as well as easy flush was noted. The subcutaneous tissue was approximated using 3-0 Vicryl and the skin incisions were approximated with 4-0 Monocryl in a subcuticular fashion. The skin prep was washed off and prepped with benzoin. Steristrips were applied. At this point a time out was performed that confirmed that all the counts were correct, the procedure that was performed, the blood loss, the IV fluids administered, and the patients condition. A dressing was placed on the wound. Having tolerated the procedure well, the patient was taken to short stay in good and stable condition. The patient was instructed that the Portacath could be used immediately. [employer] disclaimer: This document was created in part using voice recognition technology. Because of the inherent limitations of the system ([employer] user manual states that the licensee understands that speech recognition is a statistical process and that recognition errors are inherent in the process), occasional same sounding word substitutions and grammatical errors do occur and persist despite proofreading. Please read this document for context.
[2018-01-31 11:50] VITALS: BP 155/88
--- NOTE | 2018-01-31 11:54 | XRAY Report ---
Reason: PORT A CATH line placement Procedure Date: 01/31/2018 Accession Number: [id number] / [id number] Procedure: XR - Chest for Line Placement CPT Code: FULL RESULT: EXAM: CHEST RADIOGRAPHY EXAM DATE: 01/31/2018 11:30 AM. CLINICAL HISTORY: PORT A CATH line placement. COMPARISON: CHEST W/ 01/14/2018 9:47 AM. TECHNIQUE: 1 view. FINDINGS: Lungs/Pleura: Lung volumes are slightly low. There is moderate pulmonary vascular congestion. There are multiple bilateral nodular pulmonary opacities, as seen on recent prior chest CT. No large pleural effusion. The bilateral costophrenic sulci are excluded from the field of view. No pneumothorax. Mediastinum: Within exam limitations, the cardiomediastinal contour is normal. There is a new left subclavian implanted central venous catheter with tip in the mid SVC. The port is partially excluded at the left lateral margin of the image. Other: No acute osseous abnormality. IMPRESSION: 1. New left subclavian implanted central venous catheter. No pneumothorax. 2. Moderate pulmonary vascular congestion. 3. Multiple bilateral nodular pulmonary opacities, as seen on recent prior chest CT. RADIA
== END 2018-01-31 07:28 | disposition home or self-care (01) ==
LOC: SDS 07:27
PROVIDERS: ATTEND Surgery
PROC: 02HV33Z Insertion of Infusion Device into Superior Vena Cava, Percutaneous Approach (ICD-10-PCS; 2018-01-31)
PROC: 0JH60WZ Insertion of Totally Implantable Vascular Access Device into Chest Subcutaneous Tissue and Fascia, Open Approach (ICD-10-PCS; principal; 2018-01-31 08:30)
DX: C15.9 Malignant neoplasm of esophagus, unspecified (principal); E11.42 Type 2 diabetes mellitus with diabetic polyneuropathy; I10 Essential (primary) hypertension; F17.210 Nicotine dependence, cigarettes, uncomplicated; Z79.84 Long term (current) use of oral hypoglycemic drugs; Z79.899 Other long term (current) drug therapy
CPT/HCPCS: 36415; 36561; C1788; J0690; J7120; 71045

== ENCOUNTER 2018-02-28 11:44 | Outpatient (CLI) | payer MEDICARE, MEDICAID | END 2018-02-28 11:45 | disposition home or self-care (01) | LOC: DI 11:44 | PROVIDERS: ATTEND Internal Medicine | DX: C15.9 Malignant neoplasm of esophagus, unspecified (principal); I51.7 Cardiomegaly; I34.0 Nonrheumatic mitral (valve) insufficiency | CPT/HCPCS: 93306 ==

== ENCOUNTER 2018-04-20 15:53 | Outpatient (CLI) | payer MEDICARE, MEDICAID | END 2018-04-20 15:54 | disposition home or self-care (01) | LOC: CAM 15:53 | PROVIDERS: ATTEND Nurse Practitioner Adult Health | DX: R10.13 Epigastric pain (principal); M54.9 Dorsalgia, unspecified | CPT/HCPCS: 97810; 97811 ==

== ENCOUNTER 2018-05-04 13:10 | Outpatient (CLI) | payer MEDICARE, MEDICAID | END 2018-05-04 13:11 | disposition home or self-care (01) | LOC: CAM 13:10 | PROVIDERS: ATTEND Nurse Practitioner Adult Health | DX: M54.9 Dorsalgia, unspecified (principal); R10.13 Epigastric pain | CPT/HCPCS: 97810; 97811 ==

== ENCOUNTER 2018-05-25 13:12 | Outpatient (CLI) | payer MEDICAID, MEDICARE | END 2018-05-25 13:13 | disposition home or self-care (01) | LOC: CAM 13:12 | PROVIDERS: ATTEND Nurse Practitioner Adult Health | DX: M54.9 Dorsalgia, unspecified (principal); R10.13 Epigastric pain | CPT/HCPCS: 97810; 97811 ==

== ENCOUNTER 2018-07-24 08:00 | Outpatient (CLI) | payer MEDICARE, MEDICAID ==
[2018-07-24 16:48] LABS: HB2 TOTAL 14.4 g/dL; HEMOGLOBIN A1C 0.48 g/dL; HEMOGLOBIN A1C % 5.2 % (4.6-6.2)
== END 2018-07-24 23:59 | disposition home or self-care (01) ==
LOC: LAB.R 08:00
PROVIDERS: ATTEND Internal Medicine
DX: E11.9 Type 2 diabetes mellitus without complications (principal); Z79.899 Other long term (current) drug therapy
CPT/HCPCS: 82607; 83036

== ENCOUNTER 2018-07-27 13:15 | Outpatient (CLI) | payer SELFPAY | END 2018-07-27 13:16 | disposition home or self-care (01) | LOC: CAM 13:15 | PROVIDERS: ATTEND Nurse Practitioner Adult Health | DX: M54.9 Dorsalgia, unspecified (principal); R10.13 Epigastric pain | CPT/HCPCS: 97810; 97811 ==

== ENCOUNTER 2018-09-14 18:05 | Emergency (ER) | payer MEDICARE, MEDICAID ==
[2018-09-14 18:15] VITALS: BP 118/69
--- NOTE | 2018-09-14 18:27 | ED Physician Documentation ---
PD HPI HEENT - Stated complaint Stated Complaint: TOOTH PAIN - Chief complaint Chief Complaint: Heent - History obtained from History obtained from: Patient - History of Present Illness Timing - onset: Today (He had 4 teeth pulled today in preparation for dentures. Its his last 4 teeth, he has postoperative pain. He has esophageal cancer and difficulty swallowing pills due to same.) Review of Systems Constitutional: denies: Fever, Chills Throat: denies: Dental pain / toothache, Oral lesions / sores, Sore throat Cardiac: denies: Chest pain / pressure, Palpitations PD PAST MEDICAL HISTORY - Past Medical History Past Medical History: Yes Cardiovascular: None Respiratory: None Neuro: Migraines, Peripheral neuropathy Endocrine/Autoimmune: Type 2 diabetes GI: None : None HEENT: None Psych: Depression, Anxiety Musculoskeletal: Chronic back pain Derm: Other - Past Surgical History Past Surgical History: Yes General: Other - Present Medications Home Medications: Ambulatory Orders Medication Instructions Recorded Confirmed Gabapentin [Neurontin] 300 mg PO TID 04/17/13 09/05/18 Morphine ER [Ms Contin] 30 mg PO Q6H 04/17/13 09/05/18 RX: Metformin HCl 1,000 mg PO BID 04/17/13 09/05/18 RX: Testosterone Cypionate 100 mg IM ONCE 04/17/13 09/05/18 Amitriptyline [Elavil] 10 mg PO QPM 01/07/17 09/05/18 LORazepam [Ativan] 0.5 mg PO HS 01/07/17 09/05/18 RX: Lisinopril 5 mg PO DAILY 01/07/17 09/05/18 RX: Morphine Ir [Ms Ir] 15 mg PO TID PRN #25 tablet 12/16/17 09/05/18 RX: Ondansetron [Ondansetron Odt] 8 mg PO Q8HR #40 tab.rapdis 06/13/18 09/05/18 Oxycodone HCl/Acetaminophen 1 - 2 each PO Q6H PRN #14 tablet 09/14/18 [Percocet 5-325 mg Tablet] - Allergies Allergies/Adverse Reactions: Allergies Allergy/AdvReac Type Severity Reaction Status Date / Time No Known Drug Allergies Allergy Verified 09/14/18 18:15 - Social History Does the pt smoke?: Yes Smoking Status: Current every day smoker Does the pt drink ETOH?: Yes Does the pt have substance abuse?: No - Immunizations Immunizations are current?: Yes - POLST Patient has POLST: No PD ED PE NORMAL - Vitals Vital signs reviewed: Yes - General General: Alert and oriented X 3, No acute distress - HEENT HEENT: Other (Clots are still in the sockets but the sockets are kind of deep. No facial bony tenderness or evidence of infection.) - Neck Neck: Supple, no meningeal sign, No bony TTP - Neuro Neuro: Alert and oriented X 3, Normal speech Results - Vitals Vitals: Vital Signs - 24 hr 09/14/18 18:13 Temperature 36.6 C Heart Rate 92 Respiratory 19 Rate Blood Pressure 118/69 O2 Saturation 95 Oxygen O2 Source Room air PD MEDICAL DECISION MAKING - ED course ED course: He was given a prescription for liquid hydrocodone but subsequent to discharge called the pharmacy and it was going to be too expensive. He said he could take pills as long as they were crushable and this was substituted with Percocet. Departure - Departure Disposition: 01 Home, Self Care Clinical Impression: Postoperative pain Condition: Good Record reviewed to determine appropriate education?: Yes Instructions: ED Socket Dry Prescriptions: Oxycodone HCl/Acetaminophen [Percocet 5-325 mg Tablet] 1 - 2 each PO Q6H PRN #14 tablet PRN Reason: pain Comments: Follow-up with your dentist for persistent symptoms, return if worse. Discharge Date/Time: 09/14/18 18:33
== END 2018-09-14 18:33 | disposition home or self-care (01) ==
LOC: ED 18:05
DX: G89.18 Other acute postprocedural pain (principal); K08.89 Other specified disorders of teeth and supporting structures; Z98.818 Other dental procedure status; C15.9 Malignant neoplasm of esophagus, unspecified; R13.10 Dysphagia, unspecified; E11.42 Type 2 diabetes mellitus with diabetic polyneuropathy; Z79.84 Long term (current) use of oral hypoglycemic drugs; F17.200 Nicotine dependence, unspecified, uncomplicated
CPT/HCPCS: 99282; 99283

== ENCOUNTER 2018-09-16 20:47 | Emergency (ER) | payer MEDICARE, MEDICAID ==
[2018-09-16 20:53] VITALS: BP 131/71
--- NOTE | 2018-09-16 20:57 | ED Physician Documentation ---
PD HPI HEENT - Stated complaint Stated Complaint: DENTAL PAIN - Chief complaint Chief Complaint: Heent - History obtained from History obtained from: Patient - History of Present Illness Timing - details: Gradual onset Pain level now: 6 Improves: Medication Recently seen: Emergency Dept - Additional information Additional information: recently had multiple dental extractions: 4 teeth pulled 2 days ago. was seen here same day due to post-extraction pain, was prescribed percocet. he is now out of percocet, took last dose few hours ago, requests another rx to make it through and will call dentist Tuesday. He says he was not prescribed medication by dentist and was shown a policy that indicated no opiate medications would be prescribed for dental procedures. Review of Systems Constitutional: reports: Reviewed and negative Throat: reports: Other (pain associated with recent extraction sites) PD PAST MEDICAL HISTORY - Past Medical History Cardiovascular: None Respiratory: None Neuro: Migraines, Peripheral neuropathy Endocrine/Autoimmune: Type 2 diabetes GI: None : None HEENT: None Psych: Depression, Anxiety Musculoskeletal: Chronic back pain Derm: Other - Past Surgical History Past Surgical History: Yes General: Other - Present Medications Home Medications: Ambulatory Orders Medication Instructions Recorded Confirmed Gabapentin [Neurontin] 300 mg PO TID 04/17/13 09/05/18 Metformin HCl 1,000 mg PO BID 04/17/13 09/05/18 Morphine ER [Ms Contin] 30 mg PO Q6H 04/17/13 09/05/18 Testosterone Cypionate 100 mg IM ONCE 04/17/13 09/05/18 Amitriptyline [Elavil] 10 mg PO QPM 01/07/17 09/05/18 LORazepam [Ativan] 0.5 mg PO HS 01/07/17 09/05/18 Lisinopril 5 mg PO DAILY 01/07/17 09/05/18 Morphine Ir [Ms Ir] 15 mg PO TID PRN #25 tablet 12/16/17 09/05/18 Ondansetron [Ondansetron Odt] 8 mg PO Q8HR #40 tab.rapdis 06/13/18 09/05/18 Oxycodone HCl/Acetaminophen 1 - 2 each PO Q6H PRN #14 tablet 09/14/18 [Percocet 5-325 mg Tablet] Oxycodone HCl/Acetaminophen 1 - 2 each PO Q6H PRN #14 tablet 09/16/18 [Percocet 5-325 mg Tablet] - Allergies Allergies/Adverse Reactions: Allergies Allergy/AdvReac Type Severity Reaction Status Date / Time No Known Drug Allergies Allergy Verified 09/16/18 20:53 - Social History Does the pt smoke?: Yes Smoking Status: Current every day smoker Does the pt drink ETOH?: Yes Does the pt have substance abuse?: No - Immunizations Immunizations are current?: Yes - POLST Patient has POLST: No PD ED PE NORMAL - Vitals Vital signs reviewed: Yes - General General: Alert and oriented X 3, No acute distress, Well developed/nourished - HEENT HEENT: Moist mucous membranes, Other (post-extraction sites are without swelling, erythema, or evidence of dry socket or acute infection) - Neck Neck: Supple, no meningeal sign Results - Vitals Vitals: Oxygen O2 Source Room air PD MEDICAL DECISION MAKING - ED course Complexity details: considered differential, d/w patient Departure - Departure Disposition: 01 Home, Self Care Clinical Impression: Postoperative pain, Status post tooth extraction Condition: Good Instructions: NARCOTIC, Oral, ED Post Op Pain Follow-Up: Alida Castellon MD [Primary Care Provider] - (Tuesday) Prescriptions: Oxycodone HCl/Acetaminophen [Percocet 5-325 mg Tablet] 1 - 2 each PO Q6H PRN #14 tablet PRN Reason: pain Discharge Date/Time: 09/16/18 21:20
[2018-09-16] MEDS ORDERED: oxyCODONE/ACET 5/325 Prepack 4 PO STA (21:11)
== END 2018-09-16 21:20 | disposition home or self-care (01) ==
LOC: ED 20:47
DX: Z76.0 Encounter for issue of repeat prescription (principal); G89.18 Other acute postprocedural pain; E11.42 Type 2 diabetes mellitus with diabetic polyneuropathy; Z79.84 Long term (current) use of oral hypoglycemic drugs; F17.200 Nicotine dependence, unspecified, uncomplicated; Z98.818 Other dental procedure status
CPT/HCPCS: 99282; 99283

== ENCOUNTER 2018-09-18 12:54 | Outpatient (CLI) | payer MEDICARE, MEDICAID ==
[2018-09-18] MEDS ORDERED: GADOBUTROL 10 MMOL/10 ML VIAL ONE (13:43)
--- NOTE | 2018-09-19 13:43 | MRI Report ---
Reason: BRAIN METS, L FOOT DROP, LOW BACK PAIN Procedure Date: 09/18/2018 Accession Number: [id number] / [id number] Procedure: MRI - Lumbar Spine W/O CPT Code: FULL RESULT: EXAM: MRI LUMBAR SPINE WITHOUT CONTRAST EXAM DATE: 09/18/2018 01:44 PM. CLINICAL HISTORY: Brain mets, left foot drop, low back pain. COMPARISON: L SPINE 09/21/2007 2:06 PM. TECHNIQUE: Multiplanar, multisequence T1-weighted and fluid-sensitive sequences of the lumbar spine from T12 to S1 without contrast. Other: None. FINDINGS: Spinal Canal: The conus terminates at L1. The conus medullaris and cauda equina are unremarkable. Alignment: 20.1 degrees of levoscoliosis between L2-L3 and L5-S1 Bone Marrow: Five [id number] lumbar vertebral bodies are assumed. No gross fractures or bone lesions. No bone marrow replacement. Disk Levels/Facets: T12-L1: Unremarkable. L1-L2: Unremarkable. L2-L3: Broad-based disk bulge is seen, right-sided annular tear and broad-based protrusion causes mild indentation of the ventral thecal sac. Mild central stenosis. Nerve roots exit normally. No foraminal stenosis. L3-L4: Mild broad-based disk bulge and prominent facets. No central stenosis, no foraminal stenosis. L4-L5: Disk dehydration, annular tear and tiny central protrusion is present minimally indenting the thecal sac. No effacement of neural elements. No central or foraminal stenosis. L5-S1: Broad-based disk bulge, some disk dehydration is present. No central stenosis, right neural foramen is also normal. Left neural foramina is somewhat crowded by disk protrusion of the neural foramina. Moderate left foraminal stenosis. Series 301 image 3. Musculature: Moderate fatty atrophy of the multifidus muscle. Other: The partially visualized retroperitoneum is unremarkable. IMPRESSION: 1. Conus terminates at L1 which is normal. 20.1 degrees of levoscoliosis between L2-L3 and L5-S1. Moderate fatty atrophy of the multifidus muscle is seen. 2. L2-L3 shows right-sided annular tear and a broad-based protrusion with mild indentation of the ventral thecal sac. Mild central stenosis. No foraminal stenosis. 3. L3-L4 shows a mild broad-based disk bulge, no central stenosis, neural foraminal stenosis. 4. L4-L5 shows disk dehydration, tiny central protrusion with minimal indentation of the thecal sac. No central or foraminal stenosis. 5. L5-S1 shows a broad-based bulge, right neural foramina and central canal are normal. Left neural foramina somewhat crowded by disk protrusion in the neural foramina. Moderate left foraminal stenosis. Comment: The following findings are so common in adults without low back pain that while we report their presence, they must be interpreted with caution and in the context of the clinical situation. (Reference Williamk et al, Spine 2001) Prevalence of findings in patients without low back pain: Disk degeneration (any evidence): 92% Disk desiccation/T2 signal loss: 83% Disk height loss: 56% Disk bulge: 64% Disk protrusion: 32% Annular tear/high intensity zone: 38% RADIA
== END 2018-09-18 12:55 | disposition home or self-care (01) ==
LOC: DI 12:54
PROVIDERS: ATTEND Internal Medicine
DX: M51.26 Other intervertebral disc displacement, lumbar region (principal); M48.061 Spinal stenosis, lumbar region without neurogenic claudication; M41.86 Other forms of scoliosis, lumbar region; Z85.841 Personal history of malignant neoplasm of brain
CPT/HCPCS: 72148

== ENCOUNTER 2018-11-24 13:18 | Outpatient (CLI) | payer MEDICARE, MEDICAID ==
[2018-11-24] MEDS ORDERED: IOVERSOL 320 100 ML VIAL IVP ONE ×2 (13:50→14:04)
--- NOTE | 2018-11-27 15:13 | CT Report ---
Reason: ESOPHAGEAL CA Procedure Date: 11/24/2018 Accession Number: [id number] / [id number] Procedure: CT - CHEST W CPT Code: FULL RESULT: EXAM: CT CHEST EXAM DATE: 11/24/2018 01:49 PM. CLINICAL HISTORY: 63-year-old with history of esophageal cancer, follow-up examination. COMPARISONS: Chest CT from 07/25/2018, 04/26/2018, 01/14/2018. TECHNIQUE: Routine helical CT imaging was performed through the chest. IV contrast: 80 cc Optiray 320. Reconstructions: Coronal and sagittal. In accordance with CT protocol optimization, one or more of the following dose reduction techniques were utilized for this exam: automated exposure control, adjustment of mA and/or KV based on patient size, or use of iterative reconstructive technique. FINDINGS: Lungs/Pleura: Multiple pulmonary nodules and masses are demonstrated. Several small pulmonary nodules have not significantly changed. However, the larger nodules have increased in size. For example: 1. The 25 x 22 mm spiculated nodule in the anterior segment of the right upper lobe (series 4, image 160) previously measured 21 x 20 mm. 2. The 18 x 15 mm nodule in the superior segment of the lingula (series 4, image 184) previously measured 13 x 8 mm. 3. A 19 x 14 mm nodule in the posterior basilar segment of the right lower lobe (series 4, image 241) previously measured 13 x 12 mm. 4. A 28 x 15 mm juxtapleural nodule in the posterior basilar segment of the left lower lobe (series 4, image 250) previously measured 15 x 14 mm. There is some interstitial thickening and groundglass opacity around the left lower lobe nodule, which could represent lymphangitic tumor spread, atelectasis, or pneumonitis. Additional smaller nodules are present. No pleural effusion. Mediastinum: There is wall thickening of the mid-distal esophagus, likely corresponding to known neoplasm. No mediastinal or hilar adenopathy. The Port-A-Cath extends into the azygous vein. Heart size is within normal limits. No pericardial effusion. Bones: No suspicious osseous lesion. Visualized Abdomen: There is a new right adrenal nodule measuring approximately 24 x 24 mm (series 3, image 109). There is haziness in the region of the gastrohepatic ligament without upper abdominal adenopathy. There is diverticulosis of the transverse colon. Small gallstones are demonstrated. Subcentimeter hypoattenuating focus in the upper pole of the right kidney is too small to characterize. Other: None. IMPRESSION: 1. Wall thickening of the mid and distal esophagus, likely corresponding to known esophageal cancer. 2. Bilateral pulmonary nodules have increased in size, concerning for worsening metastases. 3. Interstitial opacities in the left lower lobe may represent lymphangitic tumor, atelectasis, or pneumonitis. 4. New right adrenal nodule, concerning for metastasis. 5. Malposition of the Port-A-Cath, extending into the azygous vein. 6. Cholelithiasis. RADIA The call report notification system was initiated by Dr. Brant Izaguirre at 03:01 PM on 11/27/2018. Findings regarding concern for progression of metastatic disease and malposition of Port-A-Cath were discussed with KIRSTEN Lepe In Dr. Dixon'S Office, by Dr. Brant Izaguirre at 03:11 PM on 11/27/2018.
== END 2018-11-24 13:19 | disposition home or self-care (01) ==
LOC: DI 13:18
PROVIDERS: ATTEND Internal Medicine Hematology & Oncology
DX: C15.9 Malignant neoplasm of esophagus, unspecified (principal); R91.8 Other nonspecific abnormal finding of lung field; K80.20 Calculus of gallbladder without cholecystitis without obstruction; T82.524A Displacement of infusion catheter, initial encounter; E27.9 Disorder of adrenal gland, unspecified
CPT/HCPCS: 71260; Q9967

== ENCOUNTER 2018-11-27 11:24 | Outpatient (CLI) | payer MEDICARE, MEDICAID | END 2018-11-27 11:25 | disposition home or self-care (01) | LOC: DI 11:24 | PROVIDERS: ATTEND Internal Medicine Hematology & Oncology | DX: C15.5 Malignant neoplasm of lower third of esophagus (principal); I34.0 Nonrheumatic mitral (valve) insufficiency; I77.810 Thoracic aortic ectasia; I51.7 Cardiomegaly | CPT/HCPCS: 93306 ==

== ENCOUNTER 2018-12-14 13:21 | Outpatient (CLI) | payer SELFPAY | END 2018-12-14 13:22 | disposition home or self-care (01) | LOC: CAM 13:21 | DX: M54.9 Dorsalgia, unspecified (principal); R10.13 Epigastric pain | CPT/HCPCS: 97813; 97814 ==

== ENCOUNTER 2018-12-21 13:20 | Outpatient (CLI) | payer SELFPAY | END 2018-12-21 13:21 | disposition home or self-care (01) | LOC: CAM 13:20 | DX: R10.13 Epigastric pain (principal); M54.9 Dorsalgia, unspecified | CPT/HCPCS: 97810; 97811 ==

== ENCOUNTER 2018-12-28 13:15 | Outpatient (CLI) | payer SELFPAY | END 2018-12-28 13:16 | disposition home or self-care (01) | LOC: CAM 13:15 | DX: M54.9 Dorsalgia, unspecified (principal); R10.13 Epigastric pain | CPT/HCPCS: 97810; 97811 ==

== ENCOUNTER 2019-01-09 07:26 | Day surgery (SDC) | payer MEDICARE, MEDICAID ==
--- NOTE | 2019-01-09 07:54 | ANESTHESIA ---
Pre-Anesthesia VS, & Labs - Diagnosis mal positioned subclavian port - Procedure repositioning subclavian port Vital Signs: Temp Pulse Resp BP Pulse Ox 36.4 C L 106 H 20 107/70 97 01/09/19 07:39 01/09/19 07:39 01/09/19 07:39 01/09/19 07:39 01/09/19 07:39 Height 6 ft 1 in Weight (kg) 103.6 kg Body Mass Index 33.9 - Lab Results Current Lab Results: Laboratory Tests 01/09/19 07:44: POC Whole Bld Glucose 110 H Home Medications and Allergies Gabapentin [Neurontin] 300 mg PO BID 04/17/13 Metformin HCl 500 mg PO BID 04/17/13 Morphine ER [Ms Contin] 30 mg PO Q6H 04/17/13 Testosterone Cypionate 100 mg IM ONCE 04/17/13 LORazepam [Ativan] 1 mg PO BID 01/07/17 Lisinopril 10 mg PO DAILY 01/07/17 Amitriptyline HCl 75 mg PO QPM 01/04/19 Allergies/Adverse Reactions: Allergies Allergy/AdvReac Type Severity Reaction Status Date / Time No Known Drug Allergies Allergy Verified 11/14/18 08:46 Anes History & Medical History - Anesthetic History Anesthesia Complications: reports: No previous complications Family history of Anesthesia Complications: Denies Family history of Malignant Hyperthermia: Denies - Medical History Cardiovascular: reports: Hypertension, Murmur Pulmonary: reports: None Gastrointestinal: reports: GERD, Other (denies any heart burn this morning) Urinary: reports: None Neuro: reports: Migraines, Peripheral neuropathy Musculoskeletal: reports: Chronic back pain Endocrine/Autoimmune: reports: Type 2 diabetes Blood Disorders: reports: None Skin: reports: Other Smoking Status: Former smoker Psychosocial: reports: Depression, Anxiety - Surgical History General: Other Exam General: Alert, Oriented x3, Cooperative, No acute distress Dental: WNL Mouth Openin Fingerbreadth Neck Mobility: Normal Mallampati classification: I Thyromental Distance: 4-6 cm Respiratory: Lungs clear, Normal breath sounds, No respiratory distress, No accessory muscle use Cardiovascular: Regular rate, Normal S1, Normal S2, No murmurs Abdomen: Normal bowel sounds, Soft, No tenderness, No hepatospenomegaly, No masses Extremities: No clubbing, No cyanosis, No edema, Normal pulses, No tenderness/swelling Neurological: Normal gait, Normal speech, Strength at 5/5 X4 ext, Normal tone, Sensation intact, Cranial nerves 3-12 NL, Reflexes 2+ Mental/Cognitive Status: Alert/Oriented X3, Normal for patient Cognitive Status: Within normal limits Plan Anesthesia Type: General Consent for Procedure(s) Verified and Reviewed: Yes Code Status: Attempt Resuscitation ASA classification: 3-Severe systemic disease Is this case an emergency?: No
[2019-01-09] MEDS ORDERED: BUPIVACAINE 0.5% PF 30 ML VIAL ONE (07:55)
[2019-01-09] MEDS ORDERED: LIDOCAINE 1%-EPI 1:100000 20 ML MDV ONE (07:55)
[2019-01-09] MEDS ORDERED: LACTATED RINGERS 1,000 ML IV ONE ×2 (07:56→09:32)
[2019-01-09] MEDS ORDERED: MIDAZOLAM 2 MG/2 ML VIAL IVP ONE (08:58)
[2019-01-09] MEDS ORDERED: LIDOCAINE-MPF 2% 5 ML VIAL IM ONE (08:58)
[2019-01-09] MEDS ORDERED: PROPOFOL 200 MG/20 ML VIAL IVP ONE (08:58)
[2019-01-09] MEDS ORDERED: fentaNYL 100 MCG/2 ML VIAL IVP ONE (08:58)
[2019-01-09] MEDS ORDERED: BUPIVACAINE 0.5% PF 30 ML VIAL SUBQ ONE (09:20)
[2019-01-09] MEDS ORDERED: LIDOCAINE 1%-EPI 1:100000 20 ML MDV SUBQ ONE (09:20)
--- NOTE | 2019-01-09 09:39 | OPERATIVE REPORT ---
Operative Report - General Planned Procedure: Repositioning of left subclavian port Pre-Op Diagnosis: Malpositioned port Procedure Performed: Repositioning of left subclavian port Post Op Diagnosis: Malpositioned port - Procedure Note Primary Surgeon: Quinton Anesthesia Provider: NINFA Velarde Anesthesia Technique: MAC Estimated Blood Loss (mL): 5 Indications: Port extending into the azygos vein Complications: None apparent - Other Other Information/Narrative: After obtaining informed consent, the patient is brought to the operating room and placed in the supine position on the operating table. Following successful induction of sedation, appropriate padding of all bony prominences, and placement of appropriate monitors, the left chest was prepped and draped in the standard surgical fashion. A timeout was held per scope protocol. All elements of the surgical safety checklist were followed before, during, and after the procedure. Following infiltration with local anesthetic to create a field block and incision was created directly over the port and carried down through the skin and subcutaneous tissue to reveal a 4 port below. Dissection was carried out superiorly revealing the neck of the port where the tubing was connected to the device. The collar was gently pulled back and the tubing removed from the port device. This allowed flow of blood from the subclavian vein. The tubing was shortened by 3 cm and then reattached to the port. The collar was reattached. A Prolene suture was placed around the collar where it attaches to the device to be sure it had not become too loose from manipulation. This was to assure that the tubing would not come off of the port at sometime in the future. The wound was then checked for hemostasis. The full report was checked and flushed and diana easily. It was hep-locked with heparin saline solution. The wound was then closed in 2 layers with Vicryl Monocryl suture. Chest x-ray in the recovery room revealed the catheter no longer extends into the azygos vein.
[2019-01-09 10:14] VITALS: BP 106/61
--- NOTE | 2019-01-09 10:52 | XRAY Report ---
Reason: repositioned port Procedure Date: 01/09/2019 Accession Number: [id number] / [id number] Procedure: XR - Chest for Line Placement CPT Code: Final Report FULL RESULT: EXAM: CHEST RADIOGRAPHY EXAM DATE: 01/09/2019 10:16 AM. CLINICAL HISTORY: Repositioned port. COMPARISON: CHEST FOR LINE PLACEMENT 01/31/2018 10:49 AM. TECHNIQUE: 1 view. FINDINGS: Lungs/Pleura: Masslike density projects over the right midlung, somewhat decreased in size compared to prior study. No other new consolidation. No evidence for pneumothorax. Mediastinum: Stable heart size and mediastinum. Other: Left-sided chest port catheter terminates at the junction of the brachiocephalic vein and SVC. IMPRESSION: 1. Left-sided chest port catheter terminates at the junction of the brachiocephalic vein and SVC. Additional Repositioning should be considered. 2. Persistent masslike density projects over the right midlung. RADIA
== END 2019-01-09 07:27 | disposition home or self-care (01) ==
LOC: SDS 07:26
PROVIDERS: ATTEND Surgery
PROC: 0JWT0WZ Revision of Totally Implantable Vascular Access Device in Trunk Subcutaneous Tissue and Fascia, Open Approach (ICD-10-PCS; principal; 2019-01-09 08:30)
DX: T82.524A Displacement of infusion catheter, initial encounter (principal); Y84.8 Other medical procedures as the cause of abnormal reaction of the patient, or of later complication, without mention of misadventure at the time of the procedure; C15.9 Malignant neoplasm of esophagus, unspecified; I10 Essential (primary) hypertension; E11.42 Type 2 diabetes mellitus with diabetic polyneuropathy; F17.210 Nicotine dependence, cigarettes, uncomplicated; Z79.84 Long term (current) use of oral hypoglycemic drugs; Z79.899 Other long term (current) drug therapy; Z79.891 Long term (current) use of opiate analgesic
CPT/HCPCS: 36576; J7120; 71045

== ENCOUNTER 2019-01-12 11:04 | Emergency (ER) | payer MEDICARE, MEDICAID ==
--- NOTE | 2019-01-12 13:17 | ED Physician Documentation ---
History of Present Illness - Stated complaint Stated Complaint: BACK PX - Chief complaint Chief Complaint: Back Pain - History obtained from History obtained from: Patient - History of Present Illness Timing: Chronic Pain level max: 8 Pain level now: 8 - Additonal information Additional information: 63-year-old male with metastatic esophageal cancer presents to the emergency department complaining that the pharmacy is unable to fill his morphine ER 30 mg and morphine IR 15 mg prescriptions. He states the 30 mg prescription needs a prior authorization and the immediate release prescription does not have a frequency of how often to take the medication listed on it. His doctor's office is closed today so he came to the emergency department. Nothing makes it better or worse Review of Systems Constitutional: denies: Fever, Chills Cardiac: denies: Chest pain / pressure Respiratory: denies: Cough GI: denies: Nausea, Vomiting, Diarrhea Skin: denies: Rash Musculoskeletal: denies: Neck pain PD PAST MEDICAL HISTORY - Past Medical History Cardiovascular: Hypertension Respiratory: None Neuro: Migraines, Peripheral neuropathy Endocrine/Autoimmune: Type 2 diabetes GI: GERD, Other : None HEENT: None Psych: Depression, Anxiety Musculoskeletal: Chronic back pain Derm: Other - Past Surgical History Past Surgical History: Yes General: Other - Present Medications Home Medications: Ambulatory Orders Medication Instructions Recorded Confirmed Gabapentin [Neurontin] 300 mg PO BID 04/17/13 01/12/19 Metformin HCl 500 mg PO BID 04/17/13 01/12/19 Morphine ER [Ms Contin] 30 mg PO Q6H 04/17/13 01/12/19 Testosterone Cypionate 100 mg IM ONCE 04/17/13 01/12/19 LORazepam [Ativan] 1 mg PO BID 01/07/17 01/12/19 Lisinopril 10 mg PO DAILY 01/07/17 01/12/19 Ondansetron [Ondansetron Odt] 8 mg PO Q8HR #40 tab.rapdis 06/13/18 01/12/19 Amitriptyline HCl 75 mg PO QPM 01/04/19 01/12/19 Morphine Ir [Ms Ir] 15 mg PO PRN PRN 01/12/19 01/12/19 Morphine Ir [Ms Ir] 15 mg PO Q6H PRN #14 tablet 01/12/19 - Allergies Allergies/Adverse Reactions: Allergies Allergy/AdvReac Type Severity Reaction Status Date / Time No Known Drug Allergies Allergy Verified 01/12/19 11:34 - Social History Does the pt smoke?: Yes Smoking Status: Current some day smoker Does the pt drink ETOH?: Yes Does the pt have substance abuse?: No - Immunizations Immunizations are current?: Yes - POLST Patient has POLST: No PD ED PE NORMAL - Vitals Vital signs reviewed: Yes - General General: Alert and oriented X 3, No acute distress - HEENT HEENT: Moist mucous membranes - Neck Neck: Supple, no meningeal sign - Cardiac Cardiac: RRR - Respiratory Respiratory: No respiratory distress, Clear bilaterally - Derm Derm: Warm and dry - Neuro Neuro: Alert and oriented X 3 - Psych Psych: Normal mood, Normal affect Results - Vitals Vitals: Vital Signs - 24 hr 01/12/19 11:32 Temperature 36.8 C Heart Rate 99 Respiratory 16 Rate Blood Pressure 119/67 O2 Saturation 97 Oxygen O2 Source Room air PD MEDICAL DECISION MAKING - ED course Complexity details: considered differential, d/w patient ED course: Prescribe a small amount of morphine to get him through the next 3 days. He understands he is responsible for contacting his doctor on Tuesday for further medication refills. Patient counseled regarding signs and symptoms for which I believe and urgent re-evaluation would be necessary. Patient with good understanding of and agreement to plan and is comfortable going home at this time This document was made in part using voice recognition software. While efforts are made to proofread this document, sound alike and grammatical errors may occur. Departure - Departure Disposition: 01 Home, Self Care Clinical Impression: Medicine refill Chronic pain Qualifiers: Chronic pain type: other chronic pain Qualified Code(s): G89.29 - Other chronic pain Condition: Good Instructions: ED Chronic Pain Management Follow-Up: Alida Castellon MD [Primary Care Provider] - Within 3 Days Prescriptions: Morphine Ir [Ms Ir] 15 mg PO Q6H PRN #14 tablet PRN Reason: back pain Comments: You need to follow-up with your doctor for further care. Please contact Dr. Castellon on Tuesday to have your prescriptions refilled. Do not drink alcohol or drive while on narcotic pain medicine. Note that many narcotic pain relievers also contain tylenol/acetaminophen. Please ensure that your total dose of acetaminophen from all sources does not exceed 3 grams (3000mg) per day. You may constipated on this medication, take a stool softener such as "Colace" twice a day while you are on it. Also recommend a ucxk-zod-odeatxi laxative such as senna or MiraLAX any day that you do not have a bowel movement. If you received narcotic pain medication in the emergency department, do not drive or operate machinery for the next 24 hours.
[2019-01-12 13:30] VITALS: BP 108/68
== END 2019-01-12 13:30 | disposition home or self-care (01) ==
LOC: ED 11:04
DX: Z76.0 Encounter for issue of repeat prescription (principal); G89.29 Other chronic pain; M54.9 Dorsalgia, unspecified; I10 Essential (primary) hypertension; E11.42 Type 2 diabetes mellitus with diabetic polyneuropathy; F17.200 Nicotine dependence, unspecified, uncomplicated; Z79.84 Long term (current) use of oral hypoglycemic drugs
CPT/HCPCS: 99282; 99284

== ENCOUNTER 2019-01-18 13:31 | Outpatient (CLI) | payer SELFPAY | END 2019-01-18 13:32 | disposition home or self-care (01) | LOC: CAM 13:31 | DX: M54.9 Dorsalgia, unspecified (principal); Z53.9 Procedure and treatment not carried out, unspecified reason | CPT/HCPCS: 97810; 97811 ==

== ENCOUNTER 2019-01-25 14:47 | Outpatient (CLI) | payer SELFPAY | END 2019-01-25 14:48 | disposition home or self-care (01) | LOC: CAM 14:47 | PROVIDERS: ATTEND Physician Assistant | DX: M54.9 Dorsalgia, unspecified (principal); R10.13 Epigastric pain | CPT/HCPCS: 97813; 97814 ==

== ENCOUNTER 2019-01-29 08:00 | Outpatient (CLI) | payer MEDICARE, MEDICAID ==
[2019-01-29 10:15] LABS: BASOPHILS # (AUTO) 0.1 10^3/uL (0.0-0.1); BASOPHILS % (AUTO) 0.4 %; BILIRUBIN,URINE NEGATIVE (NEGATIVE); EOSINOPHILS # (AUTO) 0.3 10^3/uL (0.0-0.7); GLUCOSE, URINE (UA) NEGATIVE (NEGATIVE); HGB - HEMOGLOBIN 12.4 g/dL (14.0-18.0); KETONES,URINE (UA) NEGATIVE (NEGATIVE); LEUKOCYTE ESTERASE, URINE NEGATIVE (NEGATIVE); LYMPHOCYTES # (AUTO) 1.1 10^3/uL (1.5-3.5); LYMPHOCYTES % (AUTO) 8.6 %; MEAN CORPUSCULAR HEMOGLOBIN 30.2 pg (27.0-31.0); MEAN CORPUSCULAR HGB CONC 33.2 g/dL (32.0-36.0); MEAN CORPUSCULAR VOLUME 91.2 fL (80.0-94.0); MEAN PLATELET VOLUME 8.9 fL (7.4-11.4); MONOCYTES # (AUTO) 0.7 10^3/uL (0.0-1.0); MONOCYTES % (AUTO) 5.7 %; NEUTROPHILS # (AUTO) 10.2 10^3/uL (1.5-6.6); NEUTROPHILS % (AUTO) 82.9 %; NITRITE,URINE NEGATIVE (NEGATIVE); OCCULT BLOOD,URINE NEGATIVE (NEGATIVE); PH,URINE 7.5 PH (5.0-7.5); PLT - PLATELET COUNT 346 10^3/uL (130-450); PROTEIN,URINE NEGATIVE (NEGATIVE); RED CELL DISTRIBUTION WIDTH 13.6 % (12.0-15.0); UROBILINOGEN,URINE 1 (NORMAL) E.U./dL (NORMAL); WHITE BLOOD COUNT 12.3 x10^3/uL (4.8-10.8)
[2019-01-29 10:16] LABS: CLARITY,URINE CLEAR (CLEAR)
[2019-01-29 10:34] LABS: ALBUMIN 3.7 g/dL (3.2-5.5); ALKALINE PHOSPHATASE 84 IU/L (42-121); ALT ALANINE AMINOTRANSFERASE 12 IU/L (10-60); AST ASPARTATE AMINOTRANSFERASE 16 IU/L (10-42); BILIRUBIN,TOTAL 0.8 mg/dL (0.2-1.0); BUN - BLOOD UREA NITROGEN 10 mg/dL (6-20); CALCIUM 9.2 mg/dL (8.5-10.3); CARBON DIOXIDE - CO2 27 mmol/L (21-32); CHLORIDE 98 mmol/L (101-111); CHOL/HDL RATIO 3.2 (<5.0); CHOLESTEROL 175 mg/dL; CREATININE 0.5 mg/dL (0.6-1.2); GFR - MDRD 167 (>89); GLUCOSE 122 mg/dL (70-100); HDL CHOLESTEROL 54 mg/dL; LDL CHOLESTEROL,CALCULATED 105 mg/dL; LDL/HDL RATIO 1.9 (<3.6); SODIUM 134 mmol/L (135-145); TOTAL PROTEIN 7.3 g/dL (6.7-8.2); VLDL CHOLESTEROL 16 mg/dL
[2019-01-29 10:41] LABS: PSA SCREEN (Z12.5) 0.984 ng/mL (0.000-2.000)
[2019-01-29 10:46] LABS: THYROID STIMULATING HORMONE 1.18 uIU/mL (0.34-5.60)
[2019-01-29 10:52] LABS: CREATININE,URINE 65.6 mg/dL
[2019-01-29 10:53] LABS: MICROALBUMIN,URINE < 0.2 mg/dL (0-300.0)
[2019-01-29 13:51] LABS: HB2 TOTAL 12.8 g/dL; HEMOGLOBIN A1C 0.51 g/dL; HEMOGLOBIN A1C % 5.8 % (4.6-6.2)
== END 2019-01-29 23:59 | disposition home or self-care (01) ==
LOC: LAB.R 08:00
PROVIDERS: ATTEND Internal Medicine
DX: Z12.5 Encounter for screening for malignant neoplasm of prostate (principal); Z79.899 Other long term (current) drug therapy; I10 Essential (primary) hypertension; M54.5 Low back pain; E11.9 Type 2 diabetes mellitus without complications; K21.9 Gastro-esophageal reflux disease without esophagitis; E29.1 Testicular hypofunction; C15.9 Malignant neoplasm of esophagus, unspecified; F32.9 Major depressive disorder, single episode, unspecified
CPT/HCPCS: 80053; 80061; 81003; 82043; 82570; 82607; 83036; 84403; 84443; 85025; G0103; 81001; 83721; 84153; 87086

== ENCOUNTER 2019-02-05 09:49 | Outpatient (CLI) | payer MEDICARE, MEDICAID ==
--- NOTE | 2019-02-05 11:05 | XRAY Report ---
Reason: ESOPHEGEAL CANCER Procedure Date: 02/05/2019 Accession Number: [id number] / [id number] Procedure: FL - Modified Barium Swallow W/SP CPT Code: Final Report FULL RESULT: EXAM: MODIFIED BARIUM SWALLOW EXAM DATE: 02/05/2019 10:29 AM. CLINICAL HISTORY: Esophageal cancer. COMPARISON: None. TECHNIQUE: Under the direction of speech pathology, patient swallowed various consistencies of barium under lateral fluoroscopic observation of the neck. Fluoroscopy Time: 55 seconds. Number of Images: 76. FINDINGS: Swallowing Mechanism: Normal oral phase and swallowing reflex. Airway Protection: Tracheal penetration without aspiration is noted with multiple consistencies. Pharynx: Mild vallecular and piriform sinus contrast pooling is noted. Other: None. IMPRESSION: Penetration without aspiration. RADIA
== END 2019-02-05 09:50 | disposition home or self-care (01) ==
LOC: DI 09:49
PROVIDERS: ATTEND Internal Medicine Hematology & Oncology
DX: C15.5 Malignant neoplasm of lower third of esophagus (principal)
CPT/HCPCS: 74230

== ENCOUNTER 2019-02-08 13:17 | Outpatient (CLI) | payer SELFPAY | END 2019-02-08 13:18 | disposition home or self-care (01) | LOC: CAM 13:17 | PROVIDERS: ATTEND Physician Assistant | DX: M54.9 Dorsalgia, unspecified (principal); R10.13 Epigastric pain | CPT/HCPCS: 97810; 97811 ==

== ENCOUNTER 2019-03-01 13:11 | Outpatient (CLI) | payer SELFPAY | END 2019-03-01 13:12 | disposition home or self-care (01) | LOC: CAM 13:11 | PROVIDERS: ATTEND Physician Assistant | DX: M54.9 Dorsalgia, unspecified (principal); R10.13 Epigastric pain | CPT/HCPCS: 97810; 97811 ==

== ENCOUNTER 2019-03-07 12:26 | Outpatient (CLI) | payer MEDICARE, MEDICAID ==
[2019-03-07] MEDS ORDERED: IOTHALAMATE MEGLUMINE 50 ML VIAL ONE (12:34)
[2019-03-07] MEDS ORDERED: IOTHALAMATE MEGLUMINE 50 ML VIAL IVP ONE (13:54)
--- NOTE | 2019-03-07 16:07 | XRAY Report ---
Reason: ESOPHAGEAL CA Procedure Date: 03/07/2019 Accession Number: [id number] / [id number] Procedure: FL - Fluoro Independent Procedure CPT Code: Final Report FULL RESULT: EXAM: FLUOROSCOPIC GUIDANCE EXAM DATE: 03/07/2019 01:14 PM. CLINICAL HISTORY: Dysfunctional port catheter. COMPARISON: Chest x-ray 01/09/2019. FINDINGS IMPRESSION: Fluoroscopic guidance provided for evaluation of the indwelling left subclavian adam catheter. Approximately 10 cc of Conray injected under fluoroscopic guidance. Multiple images obtained. The tip of the adam catheter is unchanged in position when compared to the prior study with horizontal orientation of the tip at the brachiocephalic/superior vena caval junction. Consider repositioning. Contrast flows readily through the catheter tip. Minimal transient reflux noted no fibrin sheath identified. Total fluoroscopy time: 1.37 minutes. Number of images: 6. AVA
== END 2019-03-07 12:27 | disposition home or self-care (01) ==
LOC: DI 12:26
PROVIDERS: ATTEND Internal Medicine Hematology & Oncology
DX: C15.9 Malignant neoplasm of esophagus, unspecified (principal); T85.9XXA Unspecified complication of internal prosthetic device, implant and graft, initial encounter
CPT/HCPCS: 76000; Q9961

== ENCOUNTER 2019-03-29 13:14 | Outpatient (CLI) | payer SELFPAY | END 2019-03-29 13:15 | disposition home or self-care (01) | LOC: CAM 13:14 | DX: M54.9 Dorsalgia, unspecified (principal); R10.13 Epigastric pain | CPT/HCPCS: 97810; 97811 ==

== ENCOUNTER 2019-04-12 13:13 | Outpatient (CLI) | payer SELFPAY | END 2019-04-12 13:14 | disposition home or self-care (01) | LOC: CAM 13:13 | PROVIDERS: ATTEND Internal Medicine | DX: M54.9 Dorsalgia, unspecified (principal); R10.13 Epigastric pain | CPT/HCPCS: 97810; 97811 ==

== ENCOUNTER 2019-05-10 12:52 | Outpatient (CLI) | payer MEDICARE, MEDICAID ==
[2019-05-10] MEDS ORDERED: IOVERSOL 320 100 ML VIAL IVP ONE ×2 (13:09→13:38)
--- NOTE | 2019-05-10 15:30 | CT Report ---
Reason: PT REFUSES ORAL CONTRAST - ESOPHAGEAL CA Procedure Date: 05/10/2019 Accession Number: [id number] / [id number] Procedure: CT - CHEST W CPT Code: Final Report FULL RESULT: EXAM: CT CHEST EXAM DATE: 05/10/2019 01:33 PM. CLINICAL HISTORY: Patient with history of esophageal cancer for follow-up, patient refuses oral contrast. COMPARISONS: CHEST W/ 11/24/2018 1:48 PM CHEST W/O 07/25/2018 9:32 AM CHEST W/ 04/26/2018 12:09 PM CHEST W/ 01/14/2018 9:47 AM. TECHNIQUE: Routine helical CT imaging was performed through the chest. IV contrast: 100 cc Optiray 320. Reconstructions: Coronal and sagittal. In accordance with CT protocol optimization, one or more of the following dose reduction techniques were utilized for this exam: automated exposure control, adjustment of mA and/or KV based on patient size, or use of iterative reconstructive technique. FINDINGS: Lungs/Pleura: Multiple pulmonary nodules and masses are redemonstrated and have continued to increase in size: 1. Right upper lobe 3.9 x 3.6 cm (3/165), previous 2.5 x 2.2 cm on 11/24/2018 and 2.1 x 2 cm on 07/25/2018. 2. Lingula 2.5 x 2.5 cm (3/188), previous 1.8 x 1.5 cm on 11/24/2018 and 1.3 x 0.8 cm on 07/25/2018. 3. Right lower lobe 4.4 x 3.4 cm (3/264), previously 1.9 x 1.4 cm on 11/24/2018 and 1.3 x 1.2 cm on 07/25/2018. 4. Left lower lobe 4.3 x 2.7 cm (3/264), previously 2.8 x 1.5 cm on 11/24/2018 and 1.5 x 1.4 cm on 07/25/2018. Pulmonary vasculature is normal. No pericardial or pleural effusion. No pneumothorax. Interstitial thickening and faint groundglass opacities left greater than right lower lobes similar to previous. Mediastinum: No adenopathy or masses. Wall thickening distal esophagus as before. Bones: Unremarkable. Other: Left Port-A-Cath. IMPRESSION: 1. Worsening metastatic disease to the Plata's with significant increased size of numerous lesions compared with 11/24/2018. 2. Wall thickening mid and distal esophagus, likely corresponding to the known cancer. 3. Interstitial opacities left greater than right lower lobes as before. RADIA
--- NOTE | 2019-05-10 15:57 | CT Report ---
Reason: PT REFUSES ORAL CONTRAST - ESOPHAGEAL CA Procedure Date: 05/10/2019 Accession Number: [id number] / [id number] Procedure: CT - Abdomen/Pelvis W CPT Code: Final Report FULL RESULT: EXAM: CT ABDOMEN AND PELVIS EXAM DATE: 05/10/2019 01:33 PM. CLINICAL HISTORY: Patient with esophageal cancer, follow-up examination, refuses oral contrast. COMPARISONS: CHEST W/ 11/24/2018 1:48 PM ABDOMEN/PELVIS W/ 04/26/2018 12:09 PM. TECHNIQUE: Routine helical CT imaging was performed through the abdomen and pelvis. IV contrast: OPTIRAY 320. Enteric contrast: No. Reconstructions: Coronal and sagittal. In accordance with CT protocol optimization, one or more of the following dose reduction techniques were utilized for this exam: automated exposure control, adjustment of mA and/or KV based on patient size, or use of iterative reconstructive technique. FINDINGS: Liver: Normal. No masses. Gallbladder/Bile Ducts: Cholelithiasis. Spleen: Normal. Pancreas: Normal. Adrenal Glands: Stable small left adrenal nodule. New right adrenal mass 4.9 x 6.4 cm consistent with metastatic disease. Kidneys: Small nonobstructing right renal calculi. Stable lung right renal cyst. Stable deformity lateral inferior right kidney. No masses or hydronephrosis. Peritoneal Cavity/Bowel: No free fluid, free air or adenopathy. No masses or acute inflammatory process. Pelvic Organs: The bladder and pelvic organs are within normal limits. Vasculature: No aneurysms or other significant abnormality. Bones: Unilateral right L5 pars interarticularis defect. Other: None. IMPRESSION: 1. New 4.9 x 6.4 cm right adrenal mass consistent with metastatic disease. 2. New small nonobstructing right renal calculi. 3. Stable cholelithiasis. 4. Other incidental findings as above stable small left adrenal mass and unilateral right L5 pars interarticularis defect.. RADIA
== END 2019-05-10 12:53 | disposition home or self-care (01) ==
LOC: DI 12:52
PROVIDERS: ATTEND Internal Medicine Hematology & Oncology
DX: C15.9 Malignant neoplasm of esophagus, unspecified (principal); E27.9 Disorder of adrenal gland, unspecified; N20.0 Calculus of kidney; K80.20 Calculus of gallbladder without cholecystitis without obstruction
CPT/HCPCS: 71260; 74177; Q9967

== ENCOUNTER 2019-07-05 13:16 | Outpatient (CLI) | payer SELFPAY | END 2019-07-05 13:17 | disposition home or self-care (01) | LOC: CAM 13:16 | PROVIDERS: ATTEND Internal Medicine | DX: M54.9 Dorsalgia, unspecified (principal); R07.0 Pain in throat | CPT/HCPCS: 97813; 97814 ==

== ENCOUNTER 2019-07-26 13:23 | Outpatient (CLI) | payer SELFPAY | END 2019-07-26 13:24 | disposition home or self-care (01) | LOC: CAM 13:23 | PROVIDERS: ATTEND Internal Medicine Hematology & Oncology | DX: M54.9 Dorsalgia, unspecified (principal); C15.9 Malignant neoplasm of esophagus, unspecified | CPT/HCPCS: 97813; 97814 ==

== ENCOUNTER 2019-08-09 14:33 | Outpatient (CLI) | payer SELFPAY | END 2019-08-09 14:34 | disposition home or self-care (01) | LOC: CAM 14:33 | PROVIDERS: ATTEND Internal Medicine Hematology & Oncology | DX: M54.9 Dorsalgia, unspecified (principal); C15.9 Malignant neoplasm of esophagus, unspecified | CPT/HCPCS: 97813; 97814 ==

== ENCOUNTER 2019-08-23 14:18 | Outpatient (CLI) | payer MEDICARE | END 2019-08-23 14:19 | disposition home or self-care (01) | LOC: CAM 14:18 | PROVIDERS: ATTEND Internal Medicine Hematology & Oncology | DX: M54.9 Dorsalgia, unspecified (principal); C15.9 Malignant neoplasm of esophagus, unspecified | CPT/HCPCS: 97813; 97814 ==

== ENCOUNTER 2019-09-05 10:32 | Outpatient (CLI) | payer MEDICARE, MEDICAID | END 2019-09-05 10:33 | disposition home or self-care (01) | LOC: DI 10:32 | PROVIDERS: ATTEND Physician Assistant | DX: R00.0 Tachycardia, unspecified (principal); I51.7 Cardiomegaly; C15.5 Malignant neoplasm of lower third of esophagus; C78.01 Secondary malignant neoplasm of right lung; C79.31 Secondary malignant neoplasm of brain; Z79.899 Other long term (current) drug therapy | CPT/HCPCS: 93306 ==

== ENCOUNTER 2019-09-13 15:04 | Outpatient (CLI) | payer MEDICARE, MEDICAID | END 2019-09-13 15:05 | disposition home or self-care (01) | LOC: CAM 15:04 | PROVIDERS: ATTEND Internal Medicine Hematology & Oncology | DX: M54.9 Dorsalgia, unspecified (principal); C15.9 Malignant neoplasm of esophagus, unspecified | CPT/HCPCS: 97813; 97814 ==

== ENCOUNTER 2019-11-30 07:55 | Outpatient (CLI) | payer MEDICARE, MEDICAID | END 2019-11-30 07:56 | disposition critical access hospital (66) | LOC: EMS 07:55 | PROVIDERS: ATTEND Surgery | DX: R53.1 Weakness (principal); R26.81 Unsteadiness on feet | CPT/HCPCS: A0425; A0429 ==

== ENCOUNTER 2019-11-30 08:00 | Emergency (ER) | payer MEDICARE, MEDICAID ==
[2019-11-30] MEDS ORDERED: LACTATED RINGERS 1,000 ML IV STA ×2 (08:55→10:44)
--- NOTE | 2019-11-30 08:57 | ED Physician Documentation ---
PD HPI FOCAL NEURO - Stated complaint Stated Complaint: FALL/WEAKNESS - Chief complaint Chief Complaint: Neuro - History obtained from History obtained from: Patient - History of Present Illness Timing - onset: How many weeks ago (02/15) Timing - duration: Weeks (02/15) Timing - details: Gradual onset (He states he has had varying degrees of weakness of the left side causing him to have falling at times despite use of walker or cane. He denies any headache or altered mentation. He does have a history of prior brain metastases with diffuse metastatic cancer from esophagus.), Waxing and waning Severity of deficit: Moderate Weakness: Arm, Leg, Left. No: Face Numbness: Arm, Leg, Left. No: Face Associated symptoms: Fall, Back pain (chronic). No: Headache, Nausea / vomiting, Head injury, Chest pain Baseline status: positive: A&OX3, ambulatory, indep, Cane, Walker Similar symptoms before: Diagnosis (Prior symptoms to some degree with a brain metastasis. He had had subsequent radiation to the brain for that. He had been doing well with walking except for use of a cane until the last week and a half or so) Recently seen: Clinic (He had been seen by his primary care. He is also evaluated by hospice and was being intact to the hospice service today) Review of Systems Constitutional: denies: Fever, Chills Nose: denies: Rhinorrhea / runny nose, Congestion Throat: denies: Sore throat Cardiac: reports: Chest pain / pressure (chronic due to lung mets) Respiratory: reports: Dyspnea. denies: Cough GI: denies: Abdominal Pain, Nausea, Vomiting : denies: Dysuria Musculoskeletal: reports: Back pain (chronic due to mets) Neurologic: reports: Focal weakness. denies: Near syncope, Altered mental status, Head injury PD PAST MEDICAL HISTORY - Past Medical History Cardiovascular: None Respiratory: None Neuro: Migraines, Peripheral neuropathy Endocrine/Autoimmune: Type 2 diabetes GI: None : None HEENT: None Psych: Depression, Anxiety Musculoskeletal: Chronic back pain Derm: Other - Past Surgical History Past Surgical History: Yes General: Other - Present Medications Home Medications: Ambulatory Orders Medication Instructions Recorded Confirmed Gabapentin [Neurontin] 300 mg PO BID 04/17/13 08/14/19 Metformin HCl 500 mg PO BID 04/17/13 08/14/19 Morphine ER [Ms Contin] 30 mg PO Q6H 04/17/13 08/14/19 Testosterone Cypionate 100 mg IM ONCE 04/17/13 08/14/19 lisinopriL [Lisinopril] 10 mg PO DAILY 01/07/17 08/14/19 Ondansetron [Ondansetron Odt] 8 mg PO Q8HR #40 tab.rapdis 06/13/18 08/14/19 Amitriptyline HCl 75 mg PO QPM 01/04/19 08/14/19 Morphine Ir [Ms Ir] 15 mg PO Q6H PRN #14 tablet 01/12/19 08/14/19 LORazepam [Lorazepam] 0.5 mg PO Q6HR PRN 02/27/19 08/14/19 Prochlorperazine Maleate 10 mg PO Q6HR PRN 08/07/19 08/14/19 [Compazine] Furosemide [Lasix] 20 mg PO DAILY 09/04/19 09/04/19 dexAMETHasone [Decadron] 4 mg PO DAILY #15 tablet 11/30/19 - Allergies Allergies/Adverse Reactions: Allergies Allergy/AdvReac Type Severity Reaction Status Date / Time No Known Drug Allergies Allergy Verified 11/30/19 08:11 - Social History Does the pt smoke?: Yes Smoking Status: Current every day smoker Does the pt drink ETOH?: Yes Does the pt have substance abuse?: No - Immunizations Immunizations are current?: Yes - POLST Patient has POLST: No PD ED PE NORMAL - Vitals Vital signs reviewed: Yes - General General: Alert and oriented X 3, No acute distress, Well developed/nourished - HEENT HEENT: Pharynx benign - Neck Neck: Supple, no meningeal sign, No adenopathy - Cardiac Cardiac: RRR, No murmur - Respiratory Respiratory: Other (some mild coarse sounds right side) - Abdomen Abdomen: Soft, Non tender - Derm Derm: Normal color, Warm and dry - Neuro Neuro: Alert and oriented X 3, Normal speech, Other (Some 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 for 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 machine and lifting of both the left arm and left leg.) NIHSS - Level of Consciousness Level of consciousness: (0) Alert, Keenly responsive LOC Questions: (0) Answers both Q's correct LOC Commands: (0) Performs both correctly - Gaze Best Gaze: (0) Normal - Visual Visual: (0) No loss - Facial Palsy Facial Palsy: (0) Normal, symmetrical movement - Motor Arms (both separate) Motor Arm (right): (0) No drift Motor Arm (left): (1) Drift - Motor Legs (both separate) Motor Leg (right): (0) No drift Motor Leg (left): (1) Drift - Limb Ataxia Limb Ataxia: (0) Absent - Sensory Sensory: (0) Normal - Best Language Best Language: (0) No aphasia - Dysarthria Dysarthria: (0) Normal - Extinction and Inattention (formally neg Extinction and inattention: (0) No abnormality - Total Score/Results Total Score/Result: 2 Results - Vitals Vitals: Vital Signs - 24 hr 11/30/19 11/30/19 11/30/19 08:11 10:22 12:00 Temperature 36.9 C 36.9 C Heart Rate 55 L 88 80 Respiratory 18 16 18 Rate Blood Pressure 145/76 H 126/75 136/90 H O2 Saturation 99 96 100 11/30/19 14:00 Temperature 37.1 C Heart Rate 78 Respiratory 18 Rate Blood Pressure 125/79 O2 Saturation 100 Oxygen O2 Source Room air - Labs Labs: Laboratory Tests 11/30/19 11/30/19 09:23 09:23 WBC 13.5 H RBC 4.71 Hgb 13.2 L Hct 39.9 L MCV 84.7 MCH 28.0 MCHC 33.1 RDW 15.7 H Plt Count 349 MPV 8.4 Neut # (Auto) 11.3 H Lymph # (Auto) 1.1 L Norman # (Auto) 0.9 Eos # (Auto) 0.2 Baso # (Auto) 0.1 Absolute Nucleated RBC 0.00 Nucleated RBC % 0.0 Sodium 134 L Potassium 3.8 Chloride 98 L Carbon Dioxide 24 Anion Gap 12.0 BUN 6 Creatinine 0.5 L Estimated GFR (MDRD) 167 Glucose 107 H Calcium 8.9 Magnesium 2.0 Total Bilirubin 0.6 AST 20 ALT 27 Alkaline Phosphatase 79 Total Protein 6.9 Albumin 3.7 Globulin 3.2 Albumin/Globulin Ratio 1.2 Lipase 28 - Rads (name of study) Chest x-ray Radiology: Prelim report reviewed (Localized infiltrative or consolidative findings on the chest), See rad report head CT Radiology: Discussed with rads, See rad report (Edema in the right frontal to parietal area consistent with vasogenic edema around a metastasis. Alternate consideration could be subacute stroke findings) PD MEDICAL DECISION MAKING - ED course Complexity details: reviewed results (He does have some edema in the right frontal area and does extend towards the parietal. Conversation with radiology is most likely vasogenic edema around a tumor versus subacute stroke findings.), re-evaluated patient (The patient is not a candidate apparently for further radiation and is going into the hospice service for palliative and hospice care. He is given Decadron here for improvement on some of the edema. Hospice and Dr. Garcias came and talked with the patient here), considered differential (The patient with a week and a half of left-sided undulating symptoms of weakness with difficulty walking. He has been intake by hospice today due to metastatic esophageal cancer.), d/w patient ED course: The plan is for the patient to get some Decadron for the edema and also a baby aspirin for any possible vascular issues related to the prior radiation. The patient discussed with Dr. Garcias treatment plan and there is an adult family home available for the patient to help with support. He does not want to go to a long term facility. He does have help from friends and neighbors currently for tonight and will likely be able to get to the assisted living within the next couple of days. Dr. Garcias will continue treatment for him for pain and I will prescribe him some Decadron. The patient is comfortable and preferring of this plan. Departure - Departure Disposition: 01 Home, Self Care Clinical Impression: Left-sided weakness, Brain metastasis Metastatic cancer Qualifiers: Area of secondary neoplastic involvement: unspecified site Qualified Code(s): C79.9 - Secondary malignant neoplasm of unspecified site Falls Qualifiers: Encounter type: initial encounter Qualified Code(s): W19.XXXA - Unspecified fall, initial encounter Condition: Stable Record reviewed to determine appropriate education?: Yes Follow-Up: Alida Castellon MD [Primary Care Provider] - Ricardo Garcias MD [Provider Admit Priv/Credential] - Prescriptions: dexAMETHasone [Decadron] 4 mg PO DAILY #15 tablet Comments: Take a baby aspirin daily. Take Decadron 4 mg tablets twice daily for 5 days and then once daily for another 5 days. Continue your other medications. Follow-up with hospice and your primary care for further pain medications and treatments. Discharge Date/Time: 11/30/19 14:20
[2019-11-30 09:32] LABS: BASOPHILS # (AUTO) 0.1 10^3/uL (0.0-0.1); BASOPHILS % (AUTO) 0.5 %; EOSINOPHILS # (AUTO) 0.2 10^3/uL (0.0-0.7); EOSINOPHILS % (AUTO) 1.4 %; HGB - HEMOGLOBIN 13.2 g/dL (14.0-18.0); LYMPHOCYTES # (AUTO) 1.1 10^3/uL (1.5-3.5); LYMPHOCYTES % (AUTO) 7.9 %; MEAN CORPUSCULAR HGB CONC 33.1 g/dL (32.0-36.0); MEAN CORPUSCULAR VOLUME 84.7 fL (80.0-94.0); MEAN PLATELET VOLUME 8.4 fL (7.4-11.4); MONOCYTES # (AUTO) 0.9 10^3/uL (0.0-1.0); MONOCYTES % (AUTO) 6.3 %; NEUTROPHILS # (AUTO) 11.3 10^3/uL (1.5-6.6); NEUTROPHILS % (AUTO) 83.4 %; PLT - PLATELET COUNT 349 10^3/uL (130-450); RED BLOOD COUNT 4.71 10^6/uL (4.70-6.10); RED CELL DISTRIBUTION WIDTH 15.7 % (12.0-15.0); WHITE BLOOD COUNT 13.5 x10^3/uL (4.8-10.8)
--- NOTE | 2019-11-30 09:36 | XRAY Report ---
PROCEDURE: Chest 1 View X-Ray INDICATIONS: Chest pain and TECHNIQUE: One view of the chest was acquired. COMPARISON: CT chest 05/10/2019 FINDINGS: Surgical changes and devices: Left chest wall central venous port terminates in the superior SVC. Lungs and pleura: Airspace consolidation in the right lung base and right mid lung. Streaky atelectas is in the left midlung and in the left lung base. There may be a small right pleural effusion. No yesica dence of pneumothorax. Mediastinum: Mediastinal contours appear normal. Heart size is normal. Bones and chest wall: No suspicious bony lesions. Overlying soft tissues appear unremarkable. IMPRESSION: Bilateral consolidative airspace opacities. These could represent pneumonia although it should be not ed that the patient had numerous bilateral spiculated lung masses and nodules on a 05/10/2019 examinat ion, almost certainly human resources representative of malignant metastases. CT chest with IV contrast is recommende dGera Reviewed by: Horace Bishop MD on 11/30/2019 9:35 AM PDT Approved by: Horace Bishop MD on 11/30/2019 9:35 AM PDT Station ID: [id number]
[2019-11-30 09:49] LABS: ALBUMIN 3.7 g/dL (3.2-5.5); ALBUMIN/GLOBULIN RATIO 1.2 (1.0-2.2); BILIRUBIN,TOTAL 0.6 mg/dL (0.2-1.0); CALCIUM 8.9 mg/dL (8.5-10.3); CREATININE 0.5 mg/dL (0.6-1.2); TOTAL PROTEIN 6.9 g/dL (6.7-8.2)
[2019-11-30] MEDS ORDERED: DEXAMETHASONE 10 MG/ML VIAL IVP STA (09:55)
[2019-11-30] MEDS ORDERED: ASPIRIN CHEW 81 MG TABLET PO STA (09:56)
--- NOTE | 2019-11-30 09:57 | CT Report ---
PROCEDURE: HEAD WO INDICATIONS: Left-sided weakness TECHNIQUE: Noncontrast 4.5 mm thick angled axial sections acquired from the foramen magnum to the vertex. For r adiation dose reduction, the following was used: automated exposure control, adjustment of mA and/or kV according to patient size. COMPARISON: None. FINDINGS: Image quality: Excellent. Right frontal lobe edema which appears to represent vasogenic edema surrounding a questionable hyperd ense focus which is suspicious for metastatic lesion, and a very similar location to the patient's pr ior brain metastasis as demonstrated on the 01/18/2018 MRI. There is no evidence of acute intracranial hemorrhage or abnormal extra axial fluid collection. The edema does exert mild mass effect on the nath perior aspect of the right lateral ventricle frontal horn. There is no evidence of hydrocephalus. The basilar cisterns are patent. IMPRESSION: Right frontal lobe edema which appears to represent vasogenic edema related to a small metastatic les ion. Alternatively, this could represent subacute infarct in this region due to radiation vasculopath y. If clinically warranted, MRI would be helpful in differentiating these entities. Reviewed by: Horace Bishop MD on 11/30/2019 9:56 AM PDT Approved by: Horace Bishop MD on 11/30/2019 9:56 AM PDT Station ID: [id number]
[2019-11-30] MEDS ORDERED: fentaNYL 50 MCG PATCH TOP STA (12:55)
[2019-11-30] MEDS ORDERED: HYDROmorphone 1 MG/ML CARPUJECT IVP STA (12:55)
[2019-11-30 14:15] VITALS: BP 125/79
== END 2019-11-30 14:20 | disposition home or self-care (01) ==
LOC: EDBD → EDUNIT# → ED 08:00
DX: C79.31 Secondary malignant neoplasm of brain (principal); G93.6 Cerebral edema; R29.898 Other symptoms and signs involving the musculoskeletal system; R29.6 Repeated falls; C15.9 Malignant neoplasm of esophagus, unspecified; C78.02 Secondary malignant neoplasm of left lung; C78.01 Secondary malignant neoplasm of right lung; Z20.828 Contact with and (suspected) exposure to other viral communicable diseases; M54.9 Dorsalgia, unspecified; G89.29 Other chronic pain; E11.42 Type 2 diabetes mellitus with diabetic polyneuropathy; Z79.84 Long term (current) use of oral hypoglycemic drugs; F17.200 Nicotine dependence, unspecified, uncomplicated
CPT/HCPCS: 36415; 70450; 71045; 80053; 83690; 83735; 85025; 96374; 96375; 99284; A9270; J1170; J7120; U0004

== ENCOUNTER 2020-01-21 10:05 | Outpatient (CLI) | payer MEDICARE, MEDICAID | END 2020-01-21 10:06 | disposition critical access hospital (66) | LOC: EMS 10:05 | PROVIDERS: ATTEND Surgery | DX: M54.9 Dorsalgia, unspecified (principal); M25.511 Pain in right shoulder; R41.0 Disorientation, unspecified ==

== ENCOUNTER 2020-01-21 10:43 | Emergency (ER) | payer MEDICARE, MEDICAID ==
[2020-01-21] MEDS ORDERED: MORPHINE SOL 10 MG/0.5 ML ORAL SYRINGE PO STA (11:52)
--- NOTE | 2020-01-21 11:55 | ED Physician Documentation ---
History of Present Illness - Stated complaint Stated Complaint: FALL - Chief complaint Chief Complaint: Back Pain - History obtained from History obtained from: Patient, EMS - History of Present Illness Timing: Today Pain level max: 5 Pain level now: 5 - Additonal information Additional information: Patient is a 64-year-old male on hospice. He has metastatic esophageal cancer. Lives alone and refuses to go to any home or care facilities. He has chronic back pain that is unchanged. His hospice nurse came to the home today, found him on the floor and called the ambulance. The patient states he does not know why he is here and does not want to be in the emergency department. Patient denies any injuries. Review of Systems Ten Systems: 10 systems reviewed and negative Constitutional: denies: Fever GI: denies: Vomiting Skin: denies: Rash Musculoskeletal: reports: Back pain (chronic and unchanged.) Neurologic: denies: Headache PD PAST MEDICAL HISTORY - Past Medical History Past Medical History: Yes Cardiovascular: None Respiratory: None Neuro: Migraines, Peripheral neuropathy Endocrine/Autoimmune: Type 2 diabetes GI: None : None HEENT: None Psych: Depression, Anxiety Musculoskeletal: Chronic back pain Derm: Other - Past Surgical History Past Surgical History: Yes General: Other - Present Medications Home Medications: Ambulatory Orders Medication Instructions Recorded Confirmed Gabapentin [Neurontin] 300 mg PO BID 04/17/13 08/14/19 Metformin HCl 500 mg PO BID 04/17/13 08/14/19 Morphine ER [Ms Contin] 30 mg PO Q6H 04/17/13 08/14/19 Testosterone Cypionate 100 mg IM ONCE 04/17/13 08/14/19 lisinopriL [Lisinopril] 10 mg PO DAILY 01/07/17 08/14/19 Ondansetron [Ondansetron Odt] 8 mg PO Q8HR #40 tab.rapdis 06/13/18 08/14/19 Amitriptyline HCl 75 mg PO QPM 01/04/19 08/14/19 Morphine Ir [Ms Ir] 15 mg PO Q6H PRN #14 tablet 01/12/19 08/14/19 LORazepam [Lorazepam] 0.5 mg PO Q6HR PRN 02/27/19 08/14/19 Prochlorperazine Maleate 10 mg PO Q6HR PRN 08/07/19 08/14/19 [Compazine] Furosemide [Lasix] 20 mg PO DAILY 09/04/19 09/04/19 dexAMETHasone [Decadron] 4 mg PO DAILY #15 tablet 11/30/19 - Allergies Allergies/Adverse Reactions: Allergies Allergy/AdvReac Type Severity Reaction Status Date / Time No Known Drug Allergies Allergy Verified 01/21/20 11:02 - Social History Does the pt smoke?: Yes Smoking Status: Current every day smoker Does the pt drink ETOH?: Yes Does the pt have substance abuse?: No - Immunizations Immunizations are current?: Yes - POLST Patient has POLST: No PD ED PE NORMAL - Vitals Vital signs reviewed: Yes - General General: Alert and oriented X 3, No acute distress - HEENT HEENT: Atraumatic, Other (dry lips) - Neck Neck: Supple, no meningeal sign - Cardiac Cardiac: RRR - Respiratory Respiratory: No respiratory distress, Clear bilaterally - Abdomen Abdomen: Soft, Non distended - Derm Derm: Warm and dry - Extremities Extremities: Normal ROM s pain, No edema, No calf tenderness / cord - Neuro Neuro: Alert and oriented X 3, brass reclaimer 2-12 intact, No motor deficit, No sensory deficit, Normal speech Results - Vitals Vitals: Vital Signs - 24 hr 01/21/20 01/21/20 01/21/20 10:55 12:13 12:58 Temperature 36.3 C L 36.5 C Heart Rate 100 106 H 102 H Respiratory 16 16 16 Rate Blood Pressure 115/75 105/83 H 110/82 H O2 Saturation 95 96 99 01/21/20 14:11 Temperature 36.6 C Heart Rate 100 Respiratory 16 Rate Blood Pressure 125/82 H O2 Saturation 98 Oxygen O2 Source Room air PD MEDICAL DECISION MAKING - ED course Complexity details: considered differential, d/w patient ED course: Patient is adamant that he does not want any testing performed. He does not want me treatment. He is on hospice. Dr. Garcias from hospice came and saw the patient as well. I asked if we could give the patient a dose of oral morphine. This was done. Was discussed with the patient at length by myself as well as Dr. Garcias that we recommend he go to a facility where he can have 24/7 care. The patient adamantly refuses this and does not want to go back to his house at this time. He states that he understands it is potentially unsafe, but he does not want to leave his home. Therefore the patient will be discharged. This document was made in part using voice recognition software. While efforts are made to proofread this document, sound alike and grammatical errors may occur. Departure - Departure Disposition: 01 Home, Self Care Clinical Impression: Hospice care patient Fall Qualifiers: Encounter type: initial encounter Qualified Code(s): W19.XXXA - Unspecified fall, initial encounter Chronic pain Qualifiers: Chronic pain type: other chronic pain Qualified Code(s): G89.29 - Other chronic pain Condition: Stable Instructions: ED Mechanical Fall Follow-Up: Ricardo Garcias MD [Primary Care Provider] - Within 1 week Comments: Dr. Garcias came and saw you in the emergency department today. You would benefit greatly from going to a facility that can take care of you. Please consider this. Discharge Date/Time: 01/21/20 14:11
[2020-01-21 14:13] VITALS: BP 125/82
== END 2020-01-21 14:11 | disposition home or self-care (01) ==
LOC: EDBD → EDUNIT# → ED 10:43
DX: M54.9 Dorsalgia, unspecified (principal); G89.29 Other chronic pain; W19.XXXA Unspecified fall, initial encounter; Y92.009 Unspecified place in unspecified non-institutional (private) residence as the place of occurrence of the external cause; E11.42 Type 2 diabetes mellitus with diabetic polyneuropathy; Z79.84 Long term (current) use of oral hypoglycemic drugs; F17.200 Nicotine dependence, unspecified, uncomplicated; C15.9 Malignant neoplasm of esophagus, unspecified
CPT/HCPCS: 99283; A9270

== ENCOUNTER 2020-01-21 13:33 | Outpatient (CLI) | payer MEDICARE, MEDICAID | END 2020-01-21 13:34 | disposition home or self-care (01) | LOC: EMS 13:33 | PROVIDERS: ATTEND Surgery | DX: Z74.01 Bed confinement status (principal); Z51.5 Encounter for palliative care; M54.9 Dorsalgia, unspecified; M25.511 Pain in right shoulder; R41.0 Disorientation, unspecified | CPT/HCPCS: A0425; A0428 ==

== ENCOUNTER 2020-02-02 20:14 | Outpatient (CLI) | payer MEDICARE, MEDICAID | END 2020-02-02 20:15 | disposition EMS.NT | LOC: EMS 20:14 | PROVIDERS: ATTEND Surgery | DX: Z76.89 Persons encountering health services in other specified circumstances (principal) ==

== ENCOUNTER 2020-02-04 18:44 | Outpatient (CLI) | payer MEDICARE, MEDICAID | END 2020-02-04 18:45 | disposition critical access hospital (66) | LOC: EMS 18:44 | PROVIDERS: ATTEND Surgery | DX: R53.1 Weakness (principal); R52 Pain, unspecified ==

== ENCOUNTER 2020-02-04 18:52 | Emergency (ER) | payer MEDICARE, MEDICAID ==
--- NOTE | 2020-02-04 19:39 | ED Physician Documentation ---
History of Present Illness - Stated complaint Stated Complaint: FAILURE TO THRIVE - Chief complaint Chief Complaint: General - History obtained from History obtained from: Patient, EMS - Additonal information Additional information: 64-year-old gentleman who is on hospice who has esophageal cancer with metastases to brain. It sounds like paramedics go out to his house almost daily for a variety of complaints. Today he was brought in because he says he wants to revoke his hospice to be in the hospital. He had told the nurse potentially to have a feeding tube but for me he cannot formulate any specific reason that he needs to be in the hospital. When I asked him why he needs to be in the hospital he simply states, "because he is dying." I asked him what can be done in the hospital that cannot be done in hospice that he would like done and he cannot come up with any specific answer. Review of Systems Unable to obtain: Confused PD PAST MEDICAL HISTORY - Past Medical History Cardiovascular: None Respiratory: None Neuro: Migraines, Peripheral neuropathy Endocrine/Autoimmune: Type 2 diabetes GI: None : None HEENT: None Psych: Depression, Anxiety Musculoskeletal: Chronic back pain Derm: Other - Past Surgical History Past Surgical History: Yes General: Other - Present Medications Home Medications: Ambulatory Orders Medication Instructions Recorded Confirmed Gabapentin [Neurontin] 300 mg PO BID 04/17/13 02/04/20 Metformin HCl 500 mg PO BID 04/17/13 02/04/20 Morphine ER [Ms Contin] 30 mg PO Q6H 04/17/13 02/04/20 Testosterone Cypionate 100 mg IM ONCE 04/17/13 02/04/20 lisinopriL [Lisinopril] 10 mg PO DAILY 01/07/17 02/04/20 Ondansetron [Ondansetron Odt] 8 mg PO Q8HR #40 tab.rapdis 06/13/18 02/04/20 Amitriptyline HCl 75 mg PO QPM 01/04/19 02/04/20 Morphine Ir [Ms Ir] 15 mg PO Q6H PRN #14 tablet 01/12/19 02/04/20 LORazepam [Lorazepam] 0.5 mg PO Q6HR PRN 02/27/19 02/04/20 Prochlorperazine Maleate 10 mg PO Q6HR PRN 08/07/19 02/04/20 [Compazine] Furosemide [Lasix] 20 mg PO DAILY 09/04/19 02/04/20 dexAMETHasone [Decadron] 4 mg PO DAILY #15 tablet 11/30/19 02/04/20 - Allergies Allergies/Adverse Reactions: Allergies Allergy/AdvReac Type Severity Reaction Status Date / Time No Known Drug Allergies Allergy Verified 02/04/20 19:13 - Social History Does the pt smoke?: Yes Smoking Status: Current every day smoker Does the pt drink ETOH?: Yes Does the pt have substance abuse?: No - Immunizations Immunizations are current?: Yes - POLST Patient has POLST: No PD ED PE NORMAL - Vitals Vital signs reviewed: Yes - General General: No acute distress, Other (Appears chronically but not acutely ill. He is alert and oriented to person, he knows he is in the hospital, but cannot verbalize why he wants to be in the hospital. He thinks the year is 1955.) - HEENT HEENT: PERRL, EOMI - Neck Neck: Supple, no meningeal sign, No bony TTP - Respiratory Respiratory: No respiratory distress - Abdomen Abdomen: Non tender - Neuro Eye Opening: Spontaneous Motor: Obeys Commands Verbal: Confused GCS Score: 14 Results - Vitals Vitals: Vital Signs - 24 hr 02/04/20 19:00 Temperature 36.9 C Heart Rate 109 H Respiratory 22 Rate Blood Pressure 105/78 O2 Saturation 96 Oxygen O2 Source Room air PD MEDICAL DECISION MAKING - ED course ED course: 64-year-old gentleman in hospice presents to the hospital today for unclear reasons. Supposedly told the nurse he that he wanted a feeding tube but to me he says he wants to be in the hospital because the food is better than he can get at home. I discussed with him that he cannot come in the hospital because he does not like the menu he has at home. We talked for a while he really cannot verbalize any reason that he would need to be in the hospital. There is no apparent emergency medical condition. He says he wants to revoke hospice but he thinks the year is 1955 and he is confused. Therefore I do not think he has current decision-making capacity to reverse decisions that were made During that time of sound mind. Case discussed by phone with Klaus Garcias, hospice medical clerical assistant and is in agreement. Departure - Departure Disposition: 01 Home, Self Care Clinical Impression: Brain metastasis, Esophageal cancer, stage IV Condition: Stable Record reviewed to determine appropriate education?: Yes Comments: You were seen today asking to come in the hospital but you previously decided to be in hospice and now do not have in my opinion, decision making capacity to reverse this decision and cannot verbalize why you want to be in the hospital.
[2020-02-04 21:14] VITALS: BP 122/80
== END 2020-02-04 21:14 | disposition home or self-care (01) ==
LOC: EDUNIT# → EDBD → ED 18:52
DX: C15.9 Malignant neoplasm of esophagus, unspecified (principal); C79.31 Secondary malignant neoplasm of brain; F17.200 Nicotine dependence, unspecified, uncomplicated
CPT/HCPCS: 99281; 99283

== ENCOUNTER 2020-02-04 20:55 | Outpatient (CLI) | payer MEDICARE, MEDICAID | END 2020-02-04 20:56 | disposition home or self-care (01) | LOC: EMS 20:55 | PROVIDERS: ATTEND Surgery | DX: R41.0 Disorientation, unspecified (principal); C18.9 Malignant neoplasm of colon, unspecified; R53.1 Weakness; R52 Pain, unspecified | CPT/HCPCS: A0425; A0427; A0428 ==

== ENCOUNTER 2020-02-07 01:40 | Outpatient (CLI) | payer MEDICARE, MEDICAID | END 2020-02-07 01:41 | disposition EMS.NT | LOC: EMS 01:40 | PROVIDERS: ATTEND Surgery | DX: Z03.89 Encounter for observation for other suspected diseases and conditions ruled out (principal) ==

== ENCOUNTER 2020-02-22 14:46 | Outpatient (CLI) | payer MEDICARE, MEDICAID ==
--- OUTSIDE RECORDS SUMMARY | 2020-02-27 01:45 | EXTERNAL MEDICAL SUMMARY RPT | Continuity of Care Document ---
:1955 Demographics Phone Unavailable Preferred Language Unknown Marital Status Unknown Anabaptist Affiliation Unknown Race Unknown Ethnic Group Unknown Author Organization [facility] Address [address] [place] [address] Phone Care Team Providers Name Role Phone Dannhauer Unavailable Unavailable Dixon Unavailable Unavailable Gonzalze Unavailable Unavailable Garcias Unavailable Unavailable Werve Unavailable Unavailable Plata Unavailable Unavailable Problems date description facility 2012-06-27 08:14 DIAB DOMINICK WO COMPL, TYPE II OR [facility] UNSPEC TYPE, UNCONTROLLED 2012-06-27 08:14 CHRONIC PAIN SYNDROME [facility] 2012-06-27 08:14 DISC DIS NEC/NOS-LUMBAR [facility] 2012-07-21 09:00 DIAB DOMINICK WO COMPL, TYPE II OR [facility] UNSPEC TYPE, UNCONTROLLED 2012-07-21 09:00 TESTICULAR HYPOFUNC [facility] 2012-07-21 09:00 OTH MED,LT,CURRENT USE [facility] 2012-07-25 08:21 DIAB DOMINICK WO COMPL, TYPE II OR [facility] UNSPEC TYPE, UNCONTROLLED 2012-07-25 08:[address] [facility] 2012-08-22 08:33 CHRONIC PAIN SYNDROME [facility] 2012-10-09 11:26 DIAB DOMINICK WO COMPL, TYPE II OR [facility] UNSPEC TYPE, UNCONTROLLED 2012-10-09 11:26 TESTICULAR HYPOFUNC [facility] 2012-10-11 13:08 DISC DIS NEC/NOS-LUMBAR [facility] 2012-10-17 08:34 OTHER CHRONIC PAIN [facility] [place] 2012-10-17 08:34 LUMBOSACRAL SPONDYLOSIS [facility] 2012-10-17 08:34 LONGITUD DEFIC RADIOULNA [facility] 2012-11-22 09:51 [facility] 2012-11-22 11:24 TESTICULAR HYPOFUNC [facility] 2012-11-22 11:24 DISC DIS NEC/NOS-LUMBAR [facility] 2012-12-21 13:10 TESTICULAR HYPOFUNC [facility] 2012-12-21 13:10 DISC DIS NEC/NOS-LUMBAR [facility] 2013-02-15 11:26 DISC DIS NEC/NOS-LUMBAR [facility] 2018-05-19 13:45 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 2018-05-19 13:45 MAJOR DEPRESSIVE DISORDER, SINGLE [facility] EPISODE, UNSPECIFIED 2018-05-19 13:45 POLYNEUROPATHY, UNSPECIFIED [facility] 2018-05-19 13:45 ESSENTIAL (PRIMARY) HYPERTENSION [facility] 2018-05-19 13:45 TOXIC GASTROENTERITIS AND COLITIS [facility] 2018-05-19 13:45 SPONDYLOSIS, UNSPECIFIED [facility] 2018-05-19 13:45 LOW BACK PAIN [facility] 2018-05-19 13:45 EPISTAXIS [facility] 2018-05-19 13:45 NAUSEA [facility] 2018-05-19 13:45 DYSPHAGIA, UNSPECIFIED [facility] [place] 2018-05-19 13:45 OTHER FATIGUE [facility] 2018-05-19 13:45 ANOREXIA [facility] 2018-05-19 13:45 ABNORMAL WEIGHT LOSS [facility] [place] 2018-05-19 13:45 ABNORMAL FINDINGS ON DX IMAGING OF [facility] SKULL AND HEAD, NEC 2018-05-19 13:45 ADVERSE EFFECT OF ANTINEOPLASTIC [facility] AND IMMUNOSUP DRUGS, INIT 2018-05-19 13:45 ENCOUNTER FOR ANTINEOPLASTIC [facility] CHEMOTHERAPY 2018-05-19 13:45 ENCOUNTER FOR ANTINEOPLASTIC [facility] IMMUNOTHERAPY 2018-05-19 13:45 ENCOUNTER FOR PALLIATIVE CARE [facility] 2018-05-19 13:45 SENIOR PRICING ANALYST (CURRENT) USE OF OPIATE [facility] ANALGESIC 2018-05-19 13:45 OTHER [facility] (CURRENT) DRUG [facility] THERAPY 2018-07-24 08:00 TYPE 2 DIABETES MELLITUS WITHOUT [facility] COMPLICATIONS 2018-07-24 08:00 OTHER SENIOR PRICING ANALYST (CURRENT) DRUG [facility] THERAPY 2018-08-21 10:20 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 2018-08-21 10:20 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 2018-08-21 10:20 SECONDARY MALIGNANT NEOPLASM OF [facility] LEFT LUNG 2018-08-21 10:20 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 2018-08-21 10:20 TYPE 2 DIABETES MELLITUS WITHOUT [facility] COMPLICATIONS 2018-08-21 10:20 MAJOR DEPRESSIVE DISORDER, SINGLE [facility] EPISODE, UNSPECIFIED 2018-08-21 10:20 NEOPLASM RELATED PAIN (ACUTE) [facility] (CHRONIC) 2018-08-21 10:20 ESSENTIAL (PRIMARY) HYPERTENSION [facility] 2018-08-21 10:20 NAUSEA [facility] [place] 2018-08-21 10:20 DYSPHAGIA, UNSPECIFIED [facility] edical [place] 2018-08-21 10:20 UNSP SYMPTOMS AND SIGNS INVOLVING [facility] THE MUSCULOSKELETAL SYSTEM 2018-08-21 10:20 ADVERSE EFFECT OF ANTINEOPLASTIC [facility] AND IMMUNOSUP DRUGS, INIT 2018-08-21 10:20 ENCOUNTER FOR ANTINEOPLASTIC [facility] CHEMOTHERAPY 2018-08-21 10:20 ENCOUNTER FOR ANTINEOPLASTIC [facility] IMMUNOTHERAPY 2018-08-21 10:20 ENCOUNTER FOR PALLIATIVE CARE [facility] 2018-08-21 10:20 MCC (CURRENT) USE OF OPIATE [facility] ANALGESIC 2018-08-21 10:20 OTHER SENIOR PRICING ANALYST (CURRENT) DRUG [facility] THERAPY 2018-08-21 10:20 FAMILY HISTORY OF MALIGNANT [facility] NEOPLASM OF BREAST 2018-08-21 10:20 FAMILY HISTORY OF MALIGNANT [facility] NEOPLASM OF ORGANS OR SYSTEMS 2018-08-21 10:20 PERSONAL HISTORY OF IRRADIATION [facility] 2018-09-16 20:47 TYPE 2 DIABETES MELLITUS WITH [facility] DIABETIC POLYNEUROPATHY 2018-09-16 20:47 NICOTINE DEPENDENCE, UNSPECIFIED, [facility] UNCOMPLICATED 2018-09-16 20:47 OTHER ACUTE POSTPROCEDURAL PAIN [facility] 2018-09-16 20:47 ENCOUNTER FOR ISSUE OF REPEAT [facility] PRESCRIPTION 2018-09-16 20:47 SENIOR PRICING ANALYST (CURRENT) USE OF ORAL [facility] HYPOGLYCEMIC DRUGS 2018-09-16 20:47 OTHER DENTAL PROCEDURE STATUS [facility] 2018-09-18 12:54 OTHER FORMS OF SCOLIOSIS, LUMBAR [facility] REGION 2018-09-18 12:54 SPINAL STENOSIS, LUMBAR REGION [facility] WITHOUT NEUROGENIC ZEUS 2018-09-18 12:54 OTHER INTERVERTEBRAL DISC [facility] DISPLACEMENT, LUMBAR REGION 2018-09-18 12:54 PERSONAL HISTORY OF MALIGNANT [facility] NEOPLASM OF BRAIN 2018-11-16 11:00 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 2018-11-16 11:00 SECONDARY MALIGNANT NEOPLASM OF [facility] UNSPECIFIED LUNG 2018-11-16 11:00 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 2018-11-16 11:00 NEOPLASM RELATED PAIN (ACUTE) [facility] (CHRONIC) 2018-11-16 11:00 TOXIC GASTROENTERITIS AND COLITIS [facility] 2018-11-16 11:[address] [facility] 2018-11-[address] [facility] 2018-11-16 11:00 NAUSEA WITH VOMITING, UNSPECIFIED [facility] 2018-11-16 11:[address] [facility] 2018-11-16 11:00 ADVERSE EFFECT OF ANTINEOPLASTIC [facility] AND IMMUNOSUP DRUGS, INIT 2018-11-16 11:00 ENCOUNTER FOR ANTINEOPLASTIC [facility] CHEMOTHERAPY 2018-11-16 11:00 ENCOUNTER FOR ANTINEOPLASTIC [facility] IMMUNOTHERAPY 2018-11-16 11:00 ENCOUNTER FOR PALLIATIVE CARE [facility] 2018-11-16 11:00 SENIOR PRICING ANALYST (CURRENT) USE OF OPIATE [facility] ANALGESIC 2018-11-16 11:00 OTHER [facility] (CURRENT) DRUG [facility] THERAPY 2018-11-16 11:00 FAMILY HX OF MALIG NEOPLM OF RESP [facility] AND INTRATHORAC ORGANS 2018-11-16 11:00 FAMILY HISTORY OF MALIGNANT [facility] NEOPLASM OF BREAST 2018-11-16 11:00 PERSONAL HISTORY OF IRRADIATION [facility] 2018-11-16 11:00 PRESENCE OF OTHER VASCULAR [facility] IMPLANTS AND GRAFTS 2018-11-24 13:18 MALIGNANT NEOPLASM OF ESOPHAGUS, [facility] UNSPECIFIED 2018-11-24 13:18 DISORDER OF ADRENAL GLAND, [facility] UNSPECIFIED 2018-11-24 13:18 CALCULUS OF GALLBLADDER W/O [facility] CHOLECYSTITIS W/O OBSTRUCTION 2018-11-24 13:18 OTHER NONSPECIFIC ABNORMAL FINDING [facility] OF LUNG FIELD 2018-11-24 13:18 DISPLACEMENT OF INFUSION CATHETER, [facility] INITIAL ENCOUNTER 2018-11-27 11:24 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 2018-11-27 11:24 THORACIC AORTIC ECTASIA [facility] 2019-01-09 07:26 MALIGNANT NEOPLASM OF ESOPHAGUS, [facility] UNSPECIFIED 2019-01-09 07:26 TYPE 2 DIABETES [facility]US [facility]OPATHY 2019-01-09 07:26 NICOTINE DEPENDENCE, CIGARETTES, [facility] UNCOMPLICATED 2019-01-09 07:26 ESSENTIAL (PRIMARY) HYPERTENSION [facility] 2019-01-09 07:26 DISPLACEMENT OF INFUSION CATHETER, [facility] INITIAL ENCOUNTER 2019-01-09 07:26 OTH MEDICAL PROCEDURES CAUSE ABN [facility] REACT/COMPL, W/O MISADVNT 2019-01-09 07:26 SENIOR PRICING ANALYST (CURRENT) USE OF ORAL [facility] HYPOGLYCEMIC DRUGS 2019-01-09 07:26 MCC (CURRENT) USE OF OPIATE [facility] ANALGESIC 2019-01-09 07:26 OTHER [facility] (CURRENT) DRUG [facility] THERAPY 2019-01-29 08:00 MALIGNANT NEOPLASM OF ESOPHAGUS, [facility] UNSPECIFIED 2019-01-29 08:00 TYPE 2 DIABETES MELLITUS WITHOUT [facility] COMPLICATIONS 2019-01-29 08:00 TESTICULAR HYPOFUNCTION [facility] 2019-01-29 08:00 MAJOR DEPRESSIVE DISORDER, SINGLE [facility] EPISODE, UNSPECIFIED 2019-01-29 08:00 ESSENTIAL (PRIMARY) HYPERTENSION [facility] 2019-01-29 08:00 GASTRO-ESOPHAGEAL REFLUX DISEASE [facility] WITHOUT ESOPHAGITIS 2019-01-29 08:[address] 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 2019-02-01 15:15 ESSENTIAL (PRIMARY) HYPERTENSION [facility] 2019-02-01 15:15 GASTRO-ESOPHAGEAL REFLUX DISEASE [facility] WITHOUT ESOPHAGITIS 2019-02-01 15:[address] [facility] 2019-02-01 15:15 DYSPHAGIA, UNSPECIFIED [facility] 2019-02-01 15:15 ADVERSE EFFECT OF ANTINEOPLASTIC [facility] AND IMMUNOSUP DRUGS, INIT 2019-02-01 15:15 ENCOUNTER FOR SCREENING FOR [facility] MALIGNANT NEOPLASM OF PROSTATE 2019-02-01 15:15 ENCOUNTER FOR ANTINEOPLASTIC [facility] CHEMOTHERAPY 2019-02-01 15:15 ENCOUNTER FOR ANTINEOPLASTIC [facility] IMMUNOTHERAPY 2019-02-01 15:15 SENIOR PRICING ANALYST (CURRENT) USE OF OPIATE [facility] ANALGESIC 2019-02-01 15:15 OTHER [facility] (CURRENT) DRUG [facility] THERAPY 2019-02-01 15:15 FAMILY HX OF MALIG NEOPLM OF RESP [facility] AND INTRATHORAC ORGANS 2019-02-01 15:15 FAMILY HISTORY OF MALIGNANT [facility] NEOPLASM OF BREAST 2019-02-01 15:15 PERSONAL HISTORY OF IRRADIATION [facility] 2019-02-01 15:15 PRESENCE OF OTHER VASCULAR [facility] IMPLANTS AND GRAFTS 2019-02-05 09:49 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 2019-02-19 12:00 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 2019-03-07 12:26 MALIGNANT NEOPLASM OF ESOPHAGUS, [facility] UNSPECIFIED 2019-03-07 12:26 UNSP COMPLICATION OF INTERNAL [facility] PROSTH DEV/GRFT, INIT 2019-05-03 12:30 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 2019-05-03 12:30 SECONDARY MALIGNANT NEOPLASM OF [facility] UNSPECIFIED LUNG 2019-05-03 12:30 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 2019-05-03 12:30 LOW BACK PAIN [facility] 2019-05-03 12:[address] [facility] 2019-05-03 12:30 ADVERSE EFFECT OF ANTINEOPLASTIC [facility] AND IMMUNOSUP DRUGS, INIT 2019-05-03 12:30 ENCOUNTER FOR ANTINEOPLASTIC [facility] CHEMOTHERAPY 2019-05-03 12:30 ENCOUNTER FOR ANTINEOPLASTIC [facility] IMMUNOTHERAPY 2019-05-03 12:30 ENCOUNTER FOR PALLIATIVE CARE [facility] 2019-05-03 12:30 MCC (CURRENT) USE OF OPIATE [facility] ANALGESIC 2019-05-03 12:30 OTHER [facility] (CURRENT) DRUG [facility] THERAPY 2019-05-03 12:30 FAMILY HX OF MALIG NEOPLM OF RESP [facility] AND INTRATHORAC ORGANS 2019-05-03 12:30 FAMILY HISTORY OF MALIGNANT [facility] NEOPLASM OF BREAST 2019-05-03 12:30 FAMILY HISTORY OF MALIGNANT [facility] NEOPLASM OF ORGANS OR SYSTEMS 2019-05-03 12:30 PERSONAL HISTORY OF IRRADIATION [facility] 2019-05-03 12:30 PRESENCE OF OTHER VASCULAR [facility] IMPLANTS AND GRAFTS 2019-05-10 12:52 MALIGNANT NEOPLASM OF ESOPHAGUS, [facility] UNSPECIFIED 2019-05-10 12:52 DISORDER OF ADRENAL GLAND, [facility] UNSPECIFIED 2019-05-10 12:52 CALCULUS OF GALLBLADDER W/O [facility] CHOLECYSTITIS W/O OBSTRUCTION 2019-05-10 12:[address] 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 2019-08-14 11:20 CHRONIC FATIGUE, UNSPECIFIED [facility] 2019-08-14 11:[address] [facility] 2019-08-14 11:20 ADVERSE EFFECT OF ANTINEOPLASTIC [facility] AND IMMUNOSUP DRUGS, INIT 2019-08-14 11:20 ADVERSE EFFECT OF ANTINEOPL AND [facility] IMMUNOSUP DRUGS, SEQUELA 2019-08-14 11:20 ENCOUNTER FOR ANTINEOPLASTIC [facility] CHEMOTHERAPY 2019-08-14 11:20 ENCOUNTER FOR ANTINEOPLASTIC [facility] IMMUNOTHERAPY 2019-08-14 11:20 ENCOUNTER FOR PALLIATIVE CARE [facility] 2019-08-14 11:20 OTHER [facility] (CURRENT) DRUG [facility] THERAPY 2019-08-14 11:20 PERSONAL HISTORY OF IRRADIATION [facility] 2019-08-14 11:20 PRESENCE OF OTHER VASCULAR [facility] IMPLANTS AND GRAFTS 2019-08-23 14:18 MALIGNANT NEOPLASM OF ESOPHAGUS, [facility] UNSPECIFIED 2019-08-23 14:18 DORSALGIA, UNSPECIFIED [facility] 2019-09-04 13:45 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 2019-09-04 13:45 CHRONIC FATIGUE, UNSPECIFIED [facility] 2019-09-04 13:45 ADVERSE EFFECT OF ANTINEOPLASTIC [facility] AND IMMUNOSUP DRUGS, INIT 2019-09-04 13:45 ADVERSE EFFECT OF ANTINEOPL AND [facility] IMMUNOSUP DRUGS, SEQUELA 2019-09-04 13:45 ENCOUNTER FOR ANTINEOPLASTIC [facility] IMMUNOTHERAPY 2019-09-04 13:45 ENCOUNTER FOR PALLIATIVE CARE [facility] 2019-09-04 13:45 OTHER SENIOR PRICING ANALYST (CURRENT) DRUG [facility] THERAPY 2019-09-04 13:45 PERSONAL HISTORY OF IRRADIATION [facility] 2019-09-04 13:45 PRESENCE OF OTHER VASCULAR [facility] IMPLANTS AND GRAFTS 2019-09-05 10:32 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 2019-09-05 10:32 TACHYCARDIA, UNSPECIFIED [facility] 2019-09-05 10:32 OTHER SENIOR PRICING ANALYST (CURRENT) DRUG [facility] THERAPY 2019-09-13 15:04 MALIGNANT NEOPLASM OF ESOPHAGUS, [facility] UNSPECIFIED 2019-09-13 15:04 DORSALGIA, UNSPECIFIED [facility] 2019-11-27 15:15 ENCOUNTER FOR ADMINISTRATIVE [facility] EXAMINATIONS, UNSPECIFIED 2019-11-30 07:55 UNSTEADINESS ON FEET [facility] ical [place] 2019-11-30 07:[address] 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 2019-11-30 08:00 OTH SYMPTOMS AND SIGNS INVOLVING [facility] THE MUSCULOSKELET 2019-11-30 08:00 CONTACT W AND EXPOSURE TO OTH [facility] VIRAL COMMUNICABLE D 2019-11-30 08:00 MALIGNANT NEOPLASM OF ESOPHAGUS, [facility] UNSPECIFIED 2019-11-30 08:00 TYPE 2 DIABETES MELLITUS WITH [facility] DIABETIC POLYNEUROPATHY 2019-11-30 08:00 NICOTINE DEPENDENCE, UNSPECIFIED, [facility] UNCOMPLICATED 2019-11-30 08:[address] [facility] 2019-11-30 08:00 DORSALGIA, UNSPECIFIED [facility] 2019-11-30 08:00 REPEATED FALLS [facility] [place] 2019-11-30 08:00 OTH SYMPTOMS AND SIGNS INVOLVING [facility] THE MUSCULOSKELETAL SYSTEM 2019-11-30 08:00 [facility] COMMUNIC[facility] DISEASES 2019-11-30 08:00 SENIOR PRICING ANALYST (CURRENT) USE OF ORAL [facility] HYPOGLYCEMIC DRUGS 2020-01-01 09:00 ENCOUNTER FOR ADMINISTRATIVE [facility] EXAMINATIONS, UNSPECIFIED 2020-01-21 10:05 PAIN IN RIGHT SHOULDER [facility]-21 10:05 DORSALGIA, UNSPECIFIED [facility] 2020-01-21 10:05 DISORIENTATION, UNSPECIFIED [facility] 2020-01-21 10:43 TYPE 2 DIABETES MELLITUS WITH [facility] DIABETIC POLYNEUROPA 2020-01-21 10:43 NICOTINE DEPENDENCE, UNSPECIFIED, [facility] UNCOMPLICATED 2020-01-21 10:43 DORSALGIA, UNSPECIFIED [facility] 2020-01-21 10:43 UNSPECIFIED FALL, INITIAL [facility] ENCOUNTER 2020-01-21 10:[address] IN [facility] (PRIVATE) RESIDENC 2020-01-21 10:43 SENIOR PRICING ANALYST (CURRENT) USE OF ORAL [facility] HYPOGLYCEMIC DRUGS 2020-01-21 10:43 MALIGNANT NEOPLASM OF ESOPHAGUS, [facility] UNSPECIFIED 2020-01-21 10:43 TYPE 2 DIABETES MELLITUS WITH [facility] DIABETIC POLYNEUROPATHY 2020-01-21 10:[address] [facility] 2020-01-21 10:[address] IN [facility] (PRIVATE[facility] RESIDENCE PLACE 2020-01-21 13:33 PAIN IN RIGHT SHOULDER [facility] 2020-01-21 13:33 DORSALGIA, UNSPECIFIED [facility] 2020-01-21 13:33 DISORIENTATION, UNSPECIFIED [facility] 2020-01-21 13:33 ENCOUNTER FOR PALLIATIVE CARE [facility] 2020-01-21 13:33 BED CONFINEMENT STATUS [facility] 2020-02-02 20:14 PERSONS ENCOUNTERING HEALTH [facility] Medical [place] SERVICES IN OTH CIRCUMSTANCES 2020-02-04 18:52 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 2020-02-04 18:52 MALIGNANT NEOPLASM OF ESOPHAGUS, [facility] UNSPECIFIED 2020-02-04 18:52 NICOTINE DEPENDENCE, UNSPECIFIED, [facility] UNCOMPLICATED 2020-02-04 18:52 ADULT FAILURE TO THRIVE [facility] Allergies date description [facility] ASPIRIN [facility] AT[facility]VASTATIN [facility] CODEINE SULFATE [facility] CODEINE [facility] ERYTHROMYCIN [facility] F[facility]OPROFEN CALCIUM [facility] FENTANYL [facility] GABAPENT[facility] LEVOFLOXACIN [facility] METFORMIN [facility] OXYCODONE [facility] POLLEN EXTRACT [facility] SULFACETAMIDE [facility] SULFADIAZINE [facility] TRAZODONE [facility] NO KNOWN ENVIRONMENTAL ALLERGIES [facility] SULFA ANTIBIOTICS [facility] PENICILLIN [facility] NO KNOWN ALLERGIES [facility] NO ALLERGY INFORMATION AVAILABLE [facility] PENICILLINS [facility] SULFA (SULFONAMIDE ANTIBIOTICS) [facility] NO KNOWN ALLERGIES [facility] GRAMINEAE POLLENS [facility] SULFITES [facility]ITAGLIPTIN [facility] CODEINE [facility] ACETAZOLAMIDE [facility] CEPHALEXIN [facility] AMOXICILLIN [facility] LISINOPRIL [facility] NITROFURANTOIN MONOHYD/M-CRYST [facility] sulfa drugs [facility] No Known Drug [facility]erg[facility] morphine [facility] AMLODIPINE [facility] ATENOLOL [facility] BUPROPION HCL [facility] CEPHALEXIN [facility] CHLORHEXIDINE [facility] CIPROFLOXACIN [facility] CODEINE [facility] ERYTHROMYCIN [facility] IBUPROFEN [facility] LEVOFLOXACIN [facility] LISINOPRIL [facility] LOSARTAN [facility] METFORMIN [facility] NIFEDIPINE [facility] NITROFURANTOIN [facility] NO KNOWN ALLERGIES [facility] SOAP \T\ CLEANSERS [facility] Sulfa (Sulfonamide Antibiotics) [facility] OTHER [facility] HALOPERIDOL [facility] RISPERIDONE [facility] SULFA (SULFONAMIDE ANTIBIOTICS) [facility] NO KNOWN ALLERGIES [facility] [place] NO ALLERGY INFORMATION AVAILABLE [facility] PENICILLINS [facility] NO KNOWN ALLERGIES [facility] [place] SHELLFISH CONTAINING PRODUCTS [facility] LIDOCAINE [facility] MORPHINE [facility] TREE AND SHRUB POLLEN [facility] POVIDONE-IODINE [facility] METFORMIN [facility] PENICILLIN G [facility] BEE VENOM PROTEIN (HONEY BEE) [facility] JUNIPER [facility] PIOGLITAZONE [facility] [place] HAY FEVER AND ALLERGY RELIEF [facility] No Known Drug Allergies [facility] NO KNOWN ENVIRONMENTAL ALLERGIES [facility] PENICILLINS [facility] SULFA (SULFONAMIDE ANTIBIOTICS) [facility] CLINDAMYCIN [facility] ERYTHROMYCIN [facility] No Known Drug Allergies [facility] No Known Drug Allergies [facility] Results Social History date description facility [id number]
== END 2020-02-22 14:47 | disposition critical access hospital (66) ==
LOC: EMS 14:46
PROVIDERS: ATTEND Surgery
DX: R53.1 Weakness (principal); R11.10 Vomiting, unspecified
CPT/HCPCS: A0425; A0429

== ENCOUNTER 2020-02-22 14:52 | Inpatient (IN) | payer OTHER, MEDICARE, MEDICAID ==
--- NOTE | 2020-02-22 14:57 | ED Physician Documentation ---
History of Present Illness - Stated complaint Stated Complaint: BACK PX - History obtained from History obtained from: Patient, EMS - History of Present Illness Timing: Today Pain level max: 0 Pain level now: 0 - Additonal information Additional information: 64-year-old male who is currently on hospice. He does not have any caregivers at home to care for him. He was brought in by ambulance today to be placed in respite care. He has no current complaints. Apparently the patient will be waiting in the ER until contract(s) is/are potentially finalized and/or signed to allow respite care in the hospital via hospice which is hospital owned. Review of Systems Ten Systems: 10 systems reviewed and negative Constitutional: denies: Fever, Chills GI: denies: Vomiting, Diarrhea Musculoskeletal: reports: Back pain (chronic, unchanged). denies: Neck pain Neurologic: denies: Headache PD PAST MEDICAL HISTORY - Past Medical History Cardiovascular: None Respiratory: None Neuro: Migraines, Peripheral neuropathy Endocrine/Autoimmune: Type 2 diabetes GI: None : None HEENT: None Psych: Depression, Anxiety Musculoskeletal: Chronic back pain Derm: Other - Past Surgical History Past Surgical History: Yes General: Other - Present Medications Home Medications: Ambulatory Orders Medication Instructions Recorded Confirmed Gabapentin [Neurontin] 300 mg PO TID 04/17/13 02/22/20 Metformin HCl 500 mg PO BID 04/17/13 02/04/20 Morphine ER [Ms Contin] 30 mg PO Q6H 04/17/13 02/04/20 Testosterone Cypionate 100 mg IM ONCE 04/17/13 02/04/20 lisinopriL [Lisinopril] 10 mg PO DAILY 01/07/17 02/04/20 Ondansetron [Ondansetron Odt] 8 mg PO Q8HR #40 tab.rapdis 06/13/18 02/04/20 Amitriptyline HCl 100 mg PO QPM 01/04/19 02/22/20 Morphine Ir [Ms Ir] 15 mg PO Q6H PRN #14 tablet 01/12/19 02/22/20 LORazepam [Lorazepam] 1 - 2 mg PO Q6HR PRN 02/27/19 02/04/20 Prochlorperazine Maleate 10 mg PO Q6HR PRN 08/07/19 02/04/20 [Compazine] Furosemide [Lasix] 20 mg PO DAILY 09/04/19 02/04/20 Bisacodyl Supp [Dulcolax Supp] 10 mg ME DAILY PRN 02/22/20 02/22/20 Haloperidol Oral Soln [Haldol Oral 1 mg PO Q6HR PRN 02/22/20 02/22/20 Soln] Sennosides [Senna] 8.6 mg PO 02/22/20 dexAMETHasone [Decadron] 4 mg PO BID 02/22/20 02/22/20 - Allergies Allergies/Adverse Reactions: Allergies Allergy/AdvReac Type Severity Reaction Status Date / Time No Known Drug Allergies Allergy Verified 02/04/20 19:13 - Social History Does the pt smoke?: Yes Smoking Status: Current every day smoker Does the pt drink ETOH?: Yes Does the pt have substance abuse?: No - Immunizations Immunizations are current?: Yes - POLST Patient has POLST: No PD ED PE NORMAL - Vitals Vital signs reviewed: Yes - General General: Alert and oriented X 3, No acute distress - HEENT HEENT: Moist mucous membranes - Neck Neck: Supple, no meningeal sign - Cardiac Cardiac: RRR, Strong equal pulses - Respiratory Respiratory: No respiratory distress, Clear bilaterally - Abdomen Abdomen: Soft, Non tender, Non distended - Derm Derm: Warm and dry - Extremities Extremities: No edema - Neuro Neuro: Alert and oriented X 3 - Psych Psych: Normal mood, Normal affect Results - Vitals Vitals: Vital Signs - 24 hr 02/22/20 02/22/20 15:05 17:20 Temperature 36.9 C 37.0 C Heart Rate 86 71 Respiratory 18 20 Rate Blood Pressure 109/70 103/84 H O2 Saturation 99 95 Oxygen O2 Source Room air - Labs Labs: Laboratory Tests 02/22/20 16:55 Nasal Adenovirus (PCR) NOT DETECTED Nasal B. parapertussis DNA (PCR) NOT DETECTED Nasal Coronavir 229E PCR NOT DETECTED Nasal Coronavir HKU1 PCR NOT DETECTED Nasal Coronavir NL63 PCR NOT DETECTED Nasal Coronavir OC43 PCR NOT DETECTED Nasal Enterovir/Rhinovir PCR NOT DETECTED Nasal Influenza B PCR NOT DETECTED Nasal Influenza A PCR NOT DETECTED Nasal Parainfluen 1 PCR NOT DETECTED Nasal Parainfluen 2 PCR NOT DETECTED Nasal Parainfluen 3 PCR NOT DETECTED Nasal Parainfluen 4 PCR NOT DETECTED Nasal RSV (PCR) NOT DETECTED Nasal B.pertussis DNA PCR NOT DETECTED Nasal C.pneumoniae (PCR) NOT DETECTED Harpreet Human Metapneumo PCR NOT DETECTED Nasal M.pneumoniae (PCR) NOT DETECTED Nasal SARS-CoV-2 (PCR) NOT DETECTED PD MEDICAL DECISION MAKING - ED course Complexity details: reviewed old records, considered differential, d/w patient, d/w public relations consultant ED course: 64-year-old male, currently on hospice. Brought into the hospital for respite care. Discussed the case with Dr. Garcias, hospice nurse, and he will write orders for the patient. It was determined that a new contract was not needed for this to occur. No care was rendered in the ER other than pain control. [employer] respiratory panel ordered to rapidly test specifically for COVID-19 in this patient who is expected to be hospitalized. Departure - Departure Disposition: ED Place in Observation Clinical Impression: Chronic pain Qualifiers: Chronic pain type: other chronic pain Qualified Code(s): G89.29 - Other chronic pain Metastatic cancer Qualifiers: Area of secondary neoplastic involvement: unspecified site Qualified Code(s): C79.9 - Secondary malignant neoplasm of unspecified site Condition: Stable Discharge Date/Time: 02/22/20 19:00
[2020-02-22] MEDS ORDERED: MAG HYDROX/AL HYDROX/SIMETH 30 ML UDC PO STA (16:20)
[2020-02-22] MEDS ORDERED: MORPHINE 2 MG/ML CARPUJECT IM STA (16:30)
[2020-02-22 18:06] LABS: C. PNEUMONIAE- RESP PCR PANEL NOT DETECTED
[2020-02-22] MEDS: HALOPERIDOL 10 MG/5 ML UDC PO SCH (20:34)
[2020-02-22] MEDS: SENNA 8.6 MG TABLET PO SCH (21:47)
[2020-02-22] MEDS: LORazepam 0.5 MG TABLET SL PRN (21:48)
[2020-02-22] MEDS: MORPHINE SOL 10 MG/0.5 ML ORAL SYRINGE PO PRN (21:48)
[2020-02-23] MEDS: HALOPERIDOL 10 MG/5 ML UDC PO SCH ×5 (00:22→23:54)
[2020-02-23] MEDS: LORazepam 0.5 MG TABLET SL PRN ×3 (03:58→20:32)
[2020-02-23] MEDS: MORPHINE SOL 10 MG/0.5 ML ORAL SYRINGE PO PRN ×4 (04:01→20:31)
[2020-02-23] MEDS: PANTOPRAZOLE 40 MG TABLET PO SCH (05:53)
[2020-02-23] MEDS: SENNA 8.6 MG TABLET PO SCH (08:25)
[2020-02-23] MEDS ORDERED: DEXAMETHASONE 10 MG/ML VIAL PO SCH (09:00)
[2020-02-23] MEDS ORDERED: CHERRY SYRUP 10 ML UDC PO ONE (09:00)
--- NOTE | 2020-02-23 14:14 | PHARMACY PROGRESS NOTE ---
- Best Possible Medication History Admit Date and Time: 02/23/20 1055 Processed by: Pharmacy Medication History completed: Yes Secondary Source(s): Prescription bottles, Physician records, Pharmacy records, Insurance records As the person ultimately responsible for medication therapy, providers are able to order a medication from an existing home medication list in [facility] via the "Reconcile Routine" prior to Confirmation of that medication by client technical support associate. Such practice is discouraged except when the physician, in their clinical judgment, deems that a medical need exists for a medication without regard to previous use.
[2020-02-23] MEDS: HALOPERIDOL 10 MG/5 ML UDC PO PRN (14:54)
[2020-02-24] MEDS: MORPHINE SOL 10 MG/0.5 ML ORAL SYRINGE PO PRN ×6 (01:33→22:37)
[2020-02-24] MEDS: HALOPERIDOL 10 MG/5 ML UDC PO SCH ×4 (06:15→23:49)
[2020-02-24] MEDS: PANTOPRAZOLE 40 MG TABLET PO SCH (06:15)
[2020-02-24] MEDS ORDERED: MAGNESIUM CITRATE 296 ML BOTTLE PO ONE (08:00)
[2020-02-24] MEDS: SENNA 8.6 MG TABLET PO SCH (08:48)
[2020-02-24] MEDS: LORazepam 0.5 MG TABLET SL PRN (08:49)
[2020-02-25] MEDS: MORPHINE SOL 10 MG/0.5 ML ORAL SYRINGE PO PRN ×4 (05:03→19:18)
[2020-02-25] MEDS: HALOPERIDOL 10 MG/5 ML UDC PO SCH ×3 (05:46→18:14)
[2020-02-25] MEDS: PANTOPRAZOLE 40 MG TABLET PO SCH (08:41)
[2020-02-25] MEDS: SENNA 8.6 MG TABLET PO SCH (08:42)
[2020-02-25] MEDS: fentaNYL 100 MCG PATCH TOP SCH (09:00)
[2020-02-25] MEDS: dexAMETHasone 4 MG TABLET PO SCH (10:03)
[2020-02-25] MEDS: fentaNYL 50 MCG PATCH TOP SCH (10:24)
[2020-02-25] MEDS ORDERED: MAGNESIUM CITRATE 296 ML BOTTLE PO ONE ×2 (11:11)
[2020-02-25] MEDS: LORazepam 0.5 MG TABLET SL PRN ×2 (13:56→19:35)
[2020-02-25] MEDS ORDERED: fentaNYL 25 MCG PATCH TOP SCH (18:00)
[2020-02-26] MEDS: HALOPERIDOL 10 MG/5 ML UDC PO SCH ×4 (00:58→18:00)
[2020-02-26] MEDS: MORPHINE SOL 10 MG/0.5 ML ORAL SYRINGE PO PRN ×5 (03:22→21:19)
[2020-02-26] MEDS: LORazepam 0.5 MG TABLET SL PRN ×2 (03:43→19:48)
[2020-02-26] MEDS: PANTOPRAZOLE 40 MG TABLET PO SCH (06:53)
[2020-02-26] MEDS: dexAMETHasone 4 MG TABLET PO SCH (11:36)
[2020-02-26] MEDS: SENNA 8.6 MG TABLET PO SCH (11:40)
[2020-02-26] MEDS: HALOPERIDOL 10 MG/5 ML UDC PO PRN ×2 (13:20→20:08)
--- OUTSIDE RECORDS SUMMARY | 2020-02-27 01:43 | EXTERNAL MEDICAL SUMMARY RPT | Continuity of Care Document ---
:1955 Demographics Phone Unavailable Preferred Language Unknown Marital Status Unknown Synagogue Affiliation Unknown Race Unknown Ethnic Group Unknown Author Organization [facility] Address [address] [place] [address] Phone Care Team Providers Name Role Phone Dannhauer Unavailable Unavailable Werve Unavailable Unavailable Gonzalez Unavailable Unavailable Plata Unavailable Unavailable Dixon Unavailable Unavailable Garcias Unavailable Unavailable Problems date description facility 2012-06-27 08:14 DIAB DOMINICK WO COMPL, TYPE II OR [facility] UNSPEC TYPE, UNCONTROLLED 2012-06-27 08:14 CHRONIC PAIN SYNDROME [facility] 2012-06-27 08:14 DISC DIS NEC/NOS-LUMBAR [facility] 2012-07-21 09:00 DIAB DOMINICK WO COMPL, TYPE II OR [facility] UNSPEC TYPE, UNCONTROLLED 2012-07-21 09:00 TESTICULAR HYPOFUNC [facility] 2012-07-21 09:00 OTH MED,LT,CURRENT USE [facility] 2012-07-25 08:21 DIAB DOMINICK WO COMPL, TYPE II OR [facility] UNSPEC TYPE, UNCONTROLLED 2012-07-25 08:[address] [facility] 2012-08-22 08:33 CHRONIC PAIN SYNDROME [facility] 2012-10-09 11:26 DIAB DOMINICK WO COMPL, TYPE II OR [facility] UNSPEC TYPE, UNCONTROLLED 2012-10-09 11:26 TESTICULAR HYPOFUNC [facility] 2012-10-11 13:08 DISC DIS NEC/NOS-LUMBAR [facility] 2012-10-17 08:[address] 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 2018-05-19 13:45 MAJOR DEPRESSIVE DISORDER, SINGLE [facility] EPISODE, UNSPECIFIED 2018-05-19 13:45 POLYNEUROPATHY, UNSPECIFIED [facility] 2018-05-19 13:45 ESSENTIAL (PRIMARY) HYPERTENSION [facility] 2018-05-19 13:45 TOXIC GASTROENTERITIS AND COLITIS [facility] 2018-05-19 13:45 SPONDYLOSIS, UNSPECIFIED [facility] 2018-05-19 13:[address] [facility] 2018-05-19 13:[address] [facility] 2018-05-[address] [facility] 2018-05-19 13:45 DYSPHAGIA, UNSPECIFIED [facility] [place] 2018-05-19 13:[address] [facility] 2018-05-19 13:[address] [facility] 2018-05-19 13:[address] [facility] [place] 2018-05-19 13:45 ABNORMAL FINDINGS ON DX IMAGING OF [facility] SKULL AND HEAD, NEC 2018-05-19 13:45 ADVERSE EFFECT OF ANTINEOPLASTIC [facility] AND IMMUNOSUP DRUGS, INIT 2018-05-19 13:45 ENCOUNTER FOR ANTINEOPLASTIC [facility] CHEMOTHERAPY 2018-05-19 13:45 ENCOUNTER FOR ANTINEOPLASTIC [facility] IMMUNOTHERAPY 2018-05-19 13:45 ENCOUNTER FOR PALLIATIVE CARE [facility] 2018-05-19 13:45 SAMPLE ROOM SUPERVISOR (CURRENT) USE OF OPIATE [facility] ANALGESIC 2018-05-19 13:45 OTHER INTERMEDIATE (CURRENT) DRUG [facility] THERAPY 2018-07-24 08:00 TYPE 2 DIABETES MELLITUS WITHOUT [facility] COMPLICATIONS 2018-07-24 08:00 OTHER SAMPLE ROOM SUPERVISOR (CURRENT) DRUG [facility] THERAPY 2018-08-21 10:20 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 2018-08-21 10:20 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 [place] 2018-08-21 10:20 DYSPHAGIA, UNSPECIFIED [facility] ed[facility] [place] 2018-08-21 10:20 UNSP SYMPTOMS AND SIGNS INVOLVING [facility] THE MUSCULOSKELETAL SYSTEM 2018-08-21 10:20 ADVERSE EFFECT OF ANTINEOPLASTIC [facility] AND IMMUNOSUP DRUGS, INIT 2018-08-21 10:20 ENCOUNTER FOR ANTINEOPLASTIC [facility] CHEMOTHERAPY 2018-08-21 10:20 ENCOUNTER FOR ANTINEOPLASTIC [facility] IMMUNOTHERAPY 2018-08-21 10:20 ENCOUNTER FOR PALLIATIVE CARE [facility] 2018-08-21 10:20 INTERMEDIATE (CURRENT) USE OF OPIATE [facility] ANALGESIC 2018-08-21 10:20 OTHER SAMPLE ROOM SUPERVISOR (CURRENT) DRUG [facility] THERAPY 2018-08-21 10:20 FAMILY HISTORY OF MALIGNANT [facility] NEOPLASM OF BREAST 2018-08-21 10:20 FAMILY HISTORY OF MALIGNANT [facility] NEOPLASM OF ORGANS OR SYSTEMS 2018-08-21 10:20 PERSONAL HISTORY OF IRRADIATION [facility] 2018-09-16 20:47 TYPE 2 DIABETES MELLITUS WITH [facility] DIABETIC POLYNEUROPATHY 2018-09-16 20:47 NICOTINE DEPENDENCE, UNSPECIFIED, [facility] UNCOMPLICATED 2018-09-16 20:47 OTHER ACUTE POSTPROCEDURAL PAIN [facility] 2018-09-16 20:47 ENCOUNTER FOR ISSUE OF REPEAT [facility] PRESCRIPTION 2018-09-16 20:47 SAMPLE ROOM SUPERVISOR (CURRENT) USE OF ORAL [facility] HYPOGLYCEMIC DRUGS 2018-09-16 20:47 OTHER DENTAL PROCEDURE STATUS [facility] 2018-09-18 12:54 OTHER FORMS OF SCOLIOSIS, LUMBAR [facility] REGION 2018-09-18 12:54 SPINAL STENOSIS, LUMBAR REGION [facility] WITHOUT NEUROGENIC ZEUS 2018-09-18 12:54 OTHER INTERVERTEBRAL DISC [facility] DISPLACEMENT, LUMBAR REGION 2018-09-18 12:54 PERSONAL HISTORY OF MALIGNANT [facility] NEOPLASM OF BRAIN 2018-11-16 11:00 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 2018-11-16 11:00 SECONDARY MALIGNANT NEOPLASM OF [facility] UNSPECIFIED LUNG 2018-11-16 11:00 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 2018-11-16 11:00 NEOPLASM RELATED PAIN (ACUTE) [facility] (CHRONIC) 2018-11-16 11:00 TOXIC GASTROENTERITIS AND COLITIS [facility] 2018-11-16 11:[address] [facility] 2018-11-[address] [facility] 2018-11-16 11:00 NAUSEA WITH VOMITING, UNSPECIFIED [facility] 2018-11-16 11:[address] [facility] 2018-11-16 11:00 ADVERSE EFFECT OF ANTINEOPLASTIC [facility] AND IMMUNOSUP DRUGS, INIT 2018-11-16 11:00 ENCOUNTER FOR ANTINEOPLASTIC [facility] CHEMOTHERAPY 2018-11-16 11:00 ENCOUNTER FOR ANTINEOPLASTIC [facility] IMMUNOTHERAPY 2018-11-16 11:00 ENCOUNTER FOR PALLIATIVE CARE [facility] 2018-11-16 11:00 SAMPLE ROOM SUPERVISOR (CURRENT) USE OF OPIATE [facility] ANALGESIC 2018-11-16 11:00 OTHER INTERMEDIATE (CURRENT) DRUG [facility] THERAPY 2018-11-16 11:00 FAMILY HX OF MALIG NEOPLM OF RESP [facility] AND INTRATHORAC ORGANS 2018-11-16 11:00 FAMILY HISTORY OF MALIGNANT [facility] NEOPLASM OF BREAST 2018-11-16 11:00 PERSONAL HISTORY OF IRRADIATION [facility] 2018-11-16 11:00 PRESENCE OF OTHER VASCULAR [facility] IMPLANTS AND GRAFTS 2018-11-24 13:18 MALIGNANT NEOPLASM OF ESOPHAGUS, [facility] UNSPECIFIED 2018-11-24 13:18 DISORDER OF ADRENAL GLAND, [facility] UNSPECIFIED 2018-11-24 13:18 CALCULUS OF GALLBLADDER W/O [facility] CHOLECYSTITIS W/O OBSTRUCTION 2018-11-24 13:18 OTHER NONSPECIFIC ABNORMAL FINDING [facility] OF LUNG FIELD 2018-11-24 13:18 DISPLACEMENT OF INFUSION CATHETER, 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 2018-11-27 11:24 THORACIC AORTIC ECTASIA [facility] 2019-01-09 07:26 MALIGNANT NEOPLASM OF ESOPHAGUS, [facility] UNSPECIFIED 2019-01-09 07:26 TYPE 2 DIABETES MELLITUS WITH [facility] POLYNEUROPATHY 2019-01-09 07:26 NICOTINE DEPENDENCE, CIGARETTES, [facility] UNCOMPLICATED 2019-01-09 07:26 ESSENTIAL (PRIMARY) HYPERTENSION [facility] 2019-01-09 07:26 DISPLACEMENT OF INFUSION CATHETER, [facility] INITIAL ENCOUNTER 2019-01-09 07:26 OTH MEDICAL PROCEDURES CAUSE ABN [facility] REACT/COMPL, W/O MISADVNT 2019-01-09 07:26 SAMPLE ROOM SUPERVISOR (CURRENT) USE OF ORAL [facility] HYPOGLYCEMIC DRUGS 2019-01-09 07:26 INTERMEDIATE (CURRENT) USE OF OPIATE [facility] ANALGESIC 2019-01-09 07:26 OTHER INTERMEDIATE (CURRENT) DRUG [facility] THERAPY 2019-01-29 08:00 MALIGNANT NEOPLASM OF ESOPHAGUS, [facility] UNSPECIFIED 2019-01-29 08:00 TYPE 2 DIABETES MELLITUS WITHOUT [facility] COMPLICATIONS 2019-01-29 08:00 TESTICULAR HYPOFUNCTION [facility] 2019-01-29 08:00 MAJOR DEPRESSIVE DISORDER, SINGLE [facility] EPISODE, UNSPECIFIED 2019-01-29 08:00 ESSENTIAL (PRIMARY) HYPERTENSION [facility] 2019-01-29 08:00 GASTRO-ESOPHAGEAL REFLUX DISEASE [facility] WITHOUT ESOPHAGITIS 2019-01-29 08:[address] 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 DIABETIC POLYNEUROPATHY 2019-02-01 15:15 TYPE 2 DIABETES MELLITUS WITHOUT [facility] COMPLICATIONS 2019-02-01 15:15 TESTICULAR HYPOFUNCTION [facility] 2019-02-01 15:15 MAJOR DEPRESSIVE DISORDER, SINGLE [facility] EPISODE, UNSPECIFIED 2019-02-01 15:15 DRUG-INDUCED POLYNEUROPATHY [facility] 2019-02-01 15:[address] [facility] 2019-02-01 15:15 ESSENTIAL (PRIMARY) HYPERTENSION [facility] 2019-02-01 15:15 GASTRO-ESOPHAGEAL REFLUX DISEASE [facility] WITHOUT ESOPHAGITIS 2019-02-01 15:[address] [facility] 2019-02-01 15:15 DYSPHAGIA, UNSPECIFIED [facility] 2019-02-01 15:15 ADVERSE EFFECT OF ANTINEOPLASTIC [facility] AND IMMUNOSUP DRUGS, INIT 2019-02-01 15:15 ENCOUNTER FOR SCREENING FOR [facility] MALIGNANT NEOPLASM OF PROSTATE 2019-02-01 15:15 ENCOUNTER FOR ANTINEOPLASTIC [facility] CHEMOTHERAPY 2019-02-01 15:15 ENCOUNTER FOR ANTINEOPLASTIC [facility] IMMUNOTHERAPY 2019-02-01 15:15 SAMPLE ROOM SUPERVISOR (CURRENT) USE OF OPIATE [facility] ANALGESIC 2019-02-01 15:15 OTHER INTERMEDIATE (CURRENT) DRUG [facility] THERAPY 2019-02-01 15:15 FAMILY HX OF MALIG NEOPLM OF RESP [facility] AND INTRATHORAC ORGANS 2019-02-01 15:15 FAMILY HISTORY OF MALIGNANT [facility] NEOPLASM OF BREAST 2019-02-01 15:15 PERSONAL HISTORY OF IRRADIATION [facility] 2019-02-01 15:15 PRESENCE OF OTHER VASCULAR [facility] IMPLANTS AND GRAFTS 2019-02-05 09:49 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 2019-02-19 12:00 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 2019-03-07 12:26 MALIGNANT NEOPLASM OF ESOPHAGUS, [facility] UNSPECIFIED 2019-03-07 12:26 UNSP COMPLICATION OF INTERNAL [facility] PROSTH DEV/GRFT, INIT 2019-05-03 12:30 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 2019-05-03 12:30 SECONDARY MALIGNANT NEOPLASM OF [facility] UNSPECIFIED LUNG 2019-05-03 12:30 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 2019-05-03 12:[address] [facility] 2019-05-03 12:[address] [facility] 2019-05-03 12:30 ADVERSE EFFECT OF ANTINEOPLASTIC [facility] AND IMMUNOSUP DRUGS, INIT 2019-05-03 12:30 ENCOUNTER FOR ANTINEOPLASTIC [facility] CHEMOTHERAPY 2019-05-03 12:30 ENCOUNTER FOR ANTINEOPLASTIC [facility] IMMUNOTHERAPY 2019-05-03 12:30 ENCOUNTER FOR PALLIATIVE CARE [facility] 2019-05-03 12:30 INTERMEDIATE (CURRENT) USE OF OPIATE [facility] ANALGESIC 2019-05-03 12:30 OTHER INTERMEDIATE (CURRENT) DRUG [facility] THERAPY 2019-05-03 12:30 FAMILY HX OF MALIG NEOPLM OF RESP [facility] AND INTRATHORAC ORGANS 2019-05-03 12:30 FAMILY HISTORY OF MALIGNANT [facility] NEOPLASM OF BREAST 2019-05-03 12:30 FAMILY HISTORY OF MALIGNANT [facility] NEOPLASM OF ORGANS OR SYSTEMS 2019-05-03 12:30 PERSONAL HISTORY OF IRRADIATION [facility] 2019-05-03 12:30 PRESENCE OF OTHER VASCULAR [facility] IMPLANTS AND GRAFTS 2019-05-10 12:52 MALIGNANT NEOPLASM OF ESOPHAGUS, [facility] UNSPECIFIED 2019-05-10 12:52 DISORDER OF ADRENAL GLAND, [facility] UNSPECIFIED 2019-05-10 12:52 CALCULUS OF GALLBLADDER W/O [facility] CHOLECYSTITIS W/O OBSTRUCTION 2019-05-10 12:[address] 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 2019-08-14 11:20 CHRONIC FATIGUE, UNSPECIFIED [facility] 2019-08-14 11:[address] [facility] 2019-08-14 11:20 ADVERSE EFFECT OF ANTINEOPLASTIC [facility] AND IMMUNOSUP DRUGS, INIT 2019-08-14 11:20 ADVERSE EFFECT OF ANTINEOPL AND [facility] IMMUNOSUP DRUGS, SEQUELA 2019-08-14 11:20 ENCOUNTER FOR ANTINEOPLASTIC [facility] CHEMOTHERAPY 2019-08-14 11:20 ENCOUNTER FOR ANTINEOPLASTIC [facility] IMMUNOTHERAPY 2019-08-14 11:20 ENCOUNTER FOR PALLIATIVE CARE [facility] 2019-08-14 11:20 OTHER INTERMEDIATE (CURRENT) DRUG [facility] THERAPY 2019-08-14 11:20 PERSONAL HISTORY OF IRRADIATION [facility] 2019-08-14 11:20 PRESENCE OF OTHER VASCULAR [facility] IMPLANTS AND GRAFTS 2019-08-23 14:18 MALIGNANT NEOPLASM OF ESOPHAGUS, [facility] UNSPECIFIED 2019-08-23 14:18 DORSALGIA, UNSPECIFIED [facility] 2019-09-04 13:45 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 2019-09-04 13:45 CHRONIC FATIGUE, UNSPECIFIED [facility] 2019-09-04 13:45 ADVERSE EFFECT OF ANTINEOPLASTIC [facility] AND IMMUNOSUP DRUGS, INIT 2019-09-04 13:45 ADVERSE EFFECT OF ANTINEOPL AND [facility] IMMUNOSUP DRUGS, SEQUELA 2019-09-04 13:45 ENCOUNTER FOR ANTINEOPLASTIC [facility] IMMUNOTHERAPY 2019-09-04 13:45 ENCOUNTER FOR PALLIATIVE CARE [facility] 2019-09-04 13:45 OTHER SAMPLE ROOM SUPERVISOR (CURRENT) DRUG [facility] THERAPY 2019-09-04 13:45 PERSONAL HISTORY OF IRRADIATION [facility] 2019-09-04 13:45 PRESENCE OF OTHER VASCULAR [facility] IMPLANTS AND GRAFTS 2019-09-05 10:32 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 2019-09-05 10:32 TACHYCARDIA, UNSPECIFIED [facility] 2019-09-05 10:32 OTHER SAMPLE ROOM SUPERVISOR (CURRENT) DRUG [facility] THERAPY 2019-09-13 15:04 MALIGNANT NEOPLASM OF ESOPHAGUS, [facility] UNSPECIFIED 2019-09-13 15:04 DORSALGIA, UNSPECIFIED [facility] 2019-11-27 15:15 ENCOUNTER FOR ADMINISTRATIVE [facility] EXAMINATIONS, UNSPECIFIED 2019-11-30 07:55 UNSTEADINESS ON FEET [facility] ical [place] 2019-11-30 07:[address] 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 2019-11-30 08:00 OTH SYMPTOMS AND SIGNS INVOLVING [facility] THE MUSCULOSKELET 2019-11-30 08:00 CONTACT W AND EXPOSURE TO OTH [facility] VIRAL COMMUNICABLE D 2019-11-30 08:00 MALIGNANT NEOPLASM OF ESOPHAGUS, [facility] UNSPECIFIED 2019-11-30 08:00 TYPE 2 DIABETES MELLITUS WITH [facility] DIABETIC POLYNEUROPATHY 2019-11-30 08:00 NICOTINE DEPENDENCE, UNSPECIFIED, [facility] UNCOMPLICATED 2019-11-30 08:[address] [facility] 2019-11-30 08:00 DORSALGIA, UNSPECIFIED [facility] 2019-11-30 08:[address] [facility] [place] 2019-11-30 08:00 OTH SYMPTOMS AND SIGNS INVOLVING [facility] THE MUSCULOSKELETAL SYSTEM 2019-11-30 08:00 [facility] COMM[facility] DISEASES 2019-11-30 08:00 SAMPLE ROOM SUPERVISOR (CURRENT) USE OF ORAL [facility] HYPOGLYCEMIC DRUGS 2020-01-01 09:00 ENCOUNTER FOR ADMINISTRATIVE [facility] EXAMINATIONS, UNSPECIFIED 2020-01-21 10:05 PAIN IN RIGHT SHOULDER [facility] 2020-01-21 10:05 DORSALGIA, UNSPECIFIED [facility] 2020-01-21 10:05 DISORIENTATION, UNSPECIFIED [facility] 2020-01-21 10:43 TYPE 2 DIABETES MELLITUS WITH [facility] DIABETIC POLYNEUROPA 2020-01-21 10:43 NICOTINE DEPENDENCE, UNSPECIFIED, [facility] UNCOMPLICATED 2020-01-21 10:43 DORSALGIA, UNSPECIFIED [facility] 2020-01-21 10:43 UNSPECIFIED FALL, INITIAL [facility] ENCOUNTER 2020-01-21 10:[address] IN [facility] (PRIVATE) RESIDENC 2020-01-21 10:43 SAMPLE ROOM SUPERVISOR (CURRENT) USE OF ORAL [facility] HYPOGLYCEMIC DRUGS 2020-01-21 10:43 MALIGNANT NEOPLASM OF ESOPHAGUS, [facility] UNSPECIFIED 2020-01-21 10:43 TYPE 2 DIABETES MELLITUS WITH [facility] DIABETIC POLYNEUROPATHY 2020-01-21 10:[address] [facility] 2020-01-21 10:[address] IN [facility] (PRIVATE) RESIDENCE PLACE 2020-01-21 13:33 PAIN IN RIGHT SHOULDER [facility] 2020-01-21 13:33 DORSALGIA, UNSPECIFIED [facility] 2020-01-21 13:33 DISORIENTATION, UNSPECIFIED [facility] 2020-01-21 13:33 ENCOUNTER FOR PALLIATIVE CARE [facility] 2020-01-21 13:33 BED CONFINEMENT STATUS [facility] 2020-02-02 20:14 PERSONS ENCOUNTERING HEALTH [facility] [place] SERVICES IN OTH CIRCUMSTANCES 2020-02-04 18:52 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 CODEINE [facility] ER[facility]TH[facility]YCIN [facility] FENOPROFEN CALCIUM [facility] FENTANYL [facility] GABAPENTIN [facility] LEVOFLOXACIN [facility] METFORMIN [facility] OXYCODONE [facility] [facility] POLLEN EXTRACT [facility]UL[facility]ACETAMIDE [facility] SULFADIAZINE [facility] TRAZODONE [facility] NO KNOWN ENVIRONMENTAL ALLERGIES [facility] SULFA ANTIBIOTICS [facility]IN [facility] NO KNOWN ALLERGIES [facility] NO ALLERGY INFORMATION AVAILABLE [facility] PENICILLINS [facility] SULFA (SULFONAMIDE ANTIBIOTICS) [facility] NO KNOWN ALLERGIES [facility] GRAMINEAE POLLENS [facility]ES [facility] S[facility]LIPTIN [facility] CODEINE [facility] ACETAZOLAMIDE [facility] CEPHALEXIN [facility] AMOXICILLIN [facility] LISINOPRIL [facility] NITROFURANTOIN MONOHYD/M-CRYST [facility] sulfa drugs [facility] No Known Drug Allerg[facility] morphine [facility] AML[facility]IPINE [facility] ATENOLOL [facility] BUPROPION HCL [facility] CE[facility]ALEXIN [facility] CHLORHEXIDINE [facility] CIPROFLOXACIN [facility] CODEINE [facility] ERYTHROMYCIN [facility] IBUPROFEN [facility] LEVOFLOXACIN [facility] LISINOPRIL [facility] LOSARTAN [facility] METFORMIN [facility] NIFEDIPINE [facility] NITROFURANTOIN [facility] NO KNOWN ALLERGIES [facility] SOAP \T\ CLEANSERS [facility] Sulfa (Sulfonamide Antibiotics) [facility] OTHER [facility] HALOPERIDOL [facility] RISPERIDONE [facility] SULFA (SULFONAMIDE ANTIBIOTICS) [facility] NO KNOWN ALLERGIES [facility] [place] NO ALLERGY INFORMATION AVAILABLE [facility] PENICILLINS [facility] NO KNOWN ALLERGIES [facility] [place] SHELLFISH CONTAINING PRODUCTS [facility] LIDOCAINE [facility] MORPHINE [facility] TREE AND SHRUB POLLEN [facility] Center POVIDONE-IODINE [facility] METFORMIN [facility] PENICILLIN G [facility] BEE VENOM PROTEIN (HONEY BEE) [facility] JUNIPER [facility] PIOGLITAZONE [facility] [place] HAY FEVER AND ALLERGY RELIEF [facility] No Known Drug Allergies [facility] NO KNOWN ENVIRONMENTAL ALLERGIES [facility] PENICILLINS [facility] SULFA (SULFONAMIDE ANTIBIOTICS) [facility] CLINDAMYCIN [facility] ERYTHROMYCIN [facility] No Known Drug Allergies [facility] No Known Drug Allergies [facility] Results Social History date description facility [id number]
[2020-02-27] MEDS: MORPHINE SOL 10 MG/0.5 ML ORAL SYRINGE PO PRN ×6 (02:25→23:13)
[2020-02-27] MEDS: HALOPERIDOL 10 MG/5 ML UDC PO SCH ×4 (03:16→17:50)
[2020-02-27] MEDS: LORazepam 0.5 MG TABLET SL PRN ×2 (03:16→19:49)
[2020-02-27] MEDS: PANTOPRAZOLE 40 MG TABLET PO SCH (06:27)
[2020-02-27] MEDS: dexAMETHasone 4 MG TABLET PO SCH (10:32)
[2020-02-27] MEDS: SENNA 8.6 MG TABLET PO SCH (10:34)
[2020-02-27] MEDS ORDERED: SALINE ENEMA 133 ML BOTTLE RC ONE (14:05)
[2020-02-28] MEDS: HALOPERIDOL 10 MG/5 ML UDC PO SCH ×4 (01:01→18:28)
[2020-02-28] MEDS: PANTOPRAZOLE 40 MG TABLET PO SCH (07:26)
[2020-02-28] MEDS: MORPHINE SOL 10 MG/0.5 ML ORAL SYRINGE PO PRN ×4 (07:26→20:29)
[2020-02-28] MEDS: fentaNYL 50 MCG PATCH TOP SCH (08:40)
[2020-02-28] MEDS: fentaNYL 100 MCG PATCH TOP SCH (08:43)
[2020-02-28] MEDS: SENNA 8.6 MG TABLET PO SCH (08:45)
[2020-02-28] MEDS: dexAMETHasone 4 MG TABLET PO SCH (08:48)
[2020-02-28] MEDS: LORazepam 0.5 MG TABLET SL PRN ×2 (11:26→18:55)
[2020-02-28 16:06] LABS: C. PNEUMONIAE- RESP PCR PANEL NOT DETECTED
[2020-02-29] MEDS: MORPHINE SOL 10 MG/0.5 ML ORAL SYRINGE PO PRN ×4 (00:05→12:45)
[2020-02-29] MEDS: HALOPERIDOL 10 MG/5 ML UDC PO SCH ×2 (00:05→06:44)
[2020-02-29] MEDS: LORazepam 0.5 MG TABLET SL PRN ×2 (03:22→12:45)
[2020-02-29] MEDS: PANTOPRAZOLE 40 MG TABLET PO SCH (06:42)
[2020-02-29] MEDS: dexAMETHasone 4 MG TABLET PO SCH (09:00)
[2020-02-29] MEDS: SENNA 8.6 MG TABLET PO SCH (09:00)
--- NOTE | 2020-02-29 12:43 | Discharge Plan ---
Discharge Plan for SNF / [facility] - Discharge Plan And Transition Orders Problem Reviewed?: Yes Disposition: 03 SNF DC/Xfer Condition: Good Allergies and Adverse Reactions: Allergies Allergy/AdvReac Type Severity Reaction Status Date / Time No Known Drug Allergies Allergy Verified 02/04/20 19:13 Plan of Treatment: Continue comfort care. Hospice of plans to admit him on Mar 04. Care Goals: Be comfortable through end of life. 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 Notify PCP of admission and forward orders to primary provider for signature. Other Notification Orders: Call PCP immediately if patient develops dyspnea, chest pain/tightness or edema. Additional Bowel Program Orders: If no BM after 2 days, nurse may give M.O.M. 30ml PO PRN and/or ducolax Supp 1 ID and/or MARGARETTE 250mg P.O., and/or senna 1-2 tabs PO. On day 3 nurse may give repeat above order until residents constipation is resolved. Medication Orders: PLEASE REFER TO THE DISCHARGE MEDICATION LIST.
[2020-02-29 13:14] VITALS: BP 113/73
== END 2020-02-29 13:41 | DRG 951 ==
LOC: EDUNIT# → ED 14:52 → MS2 17:33 → UNDOADMOB 17:33 → ED 17:33 → MS2 17:33 → OBSVTOIN 02-23 10:55 → INTOOBSV 02-23 10:55
PROVIDERS: ADMIT Family Medicine; ATTEND Family Medicine
DX: Z51.5 Encounter for palliative care (principal); C16.0 Malignant neoplasm of cardia; C78.00 Secondary malignant neoplasm of unspecified lung; C78.1 Secondary malignant neoplasm of mediastinum; C79.31 Secondary malignant neoplasm of brain; C78.7 Secondary malignant neoplasm of liver and intrahepatic bile duct; E11.42 Type 2 diabetes mellitus with diabetic polyneuropathy; I10 Essential (primary) hypertension; F32.9 Major depressive disorder, single episode, unspecified; F41.9 Anxiety disorder, unspecified; G89.29 Other chronic pain; R13.10 Dysphagia, unspecified; M54.9 Dorsalgia, unspecified; R11.2 Nausea with vomiting, unspecified; K59.00 Constipation, unspecified; R32 Unspecified urinary incontinence; R53.1 Weakness; R41.0 Disorientation, unspecified; F17.200 Nicotine dependence, unspecified, uncomplicated; F10.11 Alcohol abuse, in remission; G47.8 Other sleep disorders; E66.9 Obesity, unspecified; Z68.27 Body mass index [BMI] 27.0-27.9, adult; K08.9 Disorder of teeth and supporting structures, unspecified; Z74.2 Need for assistance at home and no other household member able to render care; Z66 Do not resuscitate; Z20.822 Contact with and (suspected) exposure to COVID-19; Z79.84 Long term (current) use of oral hypoglycemic drugs; Z92.3 Personal history of irradiation; Z79.52 Long term (current) use of systemic steroids; Z79.899 Other long term (current) drug therapy; Z92.21 Personal history of antineoplastic chemotherapy
CPT/HCPCS: 0202U; 96374; 99283; 99285; A9270; J8540